=== PATIENT | male | born 1965 | race Caucasian/White ===

== ENCOUNTER 2020-06-25 00:15 | Observation (INO) | payer MEDICARE ==
--- NOTE | 2020-06-25 00:32 | ERPHSYRPT ---
- History of Present Illness Time Seen by Provider: 06/25/20 00:30 Historian: patient Exam Limitations: no limitations Physician History: Pt states he had umbilical hernia surgery on 06/07/20 in [place], [place] by Dr. Perez and 6 days later it was drained producing red/yellow fluid. Pt states 3 days ago the periumbilical area became red and 2 days ago he started with sharp constant 8/10 periumbilical pain. Pt denies fever, chills, nausea, vomiting, diarrhea, chest pain, shortness of air. Last BM was yesterday & wnl. Allergies/Adverse Reactions: codeine Allergy (Verified 06/25/20 00:41) Penicillins Allergy (Verified 06/25/20 00:41) Home Medications: Diazepam 5 mg [Valium 5 MG] 5 mg PO DAILY PRN 06/25/20 [History] Quetiapine Fumarate 100 mg [Seroquel 100 MG] 200 mg PO HS 06/25/20 [Hi story] Venlafaxine HCl ER 75 mg [Effexor XR 75 MG] 75 mg PO DAILY 06/25/20 [History] Travel Risk - International Travel Have you traveled outside of the country in past 3 weeks: No - Coronavirus Screening Are you exhibiting any of the following symptoms?: No Close contact with a COVID-19 positive Pt in past 14-21 Days: No - Review of Systems Constitutional: No Fever, No Chills Respiratory: No Dyspnea Cardiac: No Chest Pain Abdominal/Gastrointestinal: Abdominal Pain, No Nausea, No Vomiting, No Diarrhea Neurological: No Headache All Other Systems: Reviewed and Negative - Nursing Vital Signs Nursing Vital Signs: Initial Vital Signs Pulse Rate 86 06/25/20 00:28 Respiratory Rate 18 06/25/20 00:28 Blood Pressure 136/99 06/25/20 00:28 O2 Sat by Pulse Oximetry 97 06/25/20 00:28 Pain Scale Pain Intensity 2 - Physical Exam General Appearance: alert Eye Exam: PERRL/EOMI Ears, Nose, Throat Exam: pharynx normal, moist mucous membranes Neck Exam: normal inspection Respiratory Exam: lungs clear Cardiovascular Exam: normal heart sounds Gastrointestinal/Abdomen Exam: tenderness (moderate periumbilical tenderness with mild periumbilical erythema and edema.), other (B.S. mildly hyperactive with mildly increased pitch.) Back Exam: normal inspection Extremity Exam: No pedal edema Neurologic Exam: alert, cooperative Skin Exam: No cyanosis - Course Nursing assessment & vital signs reviewed: Yes - CT Exams Abdomen/Pelvis CT Interpretation: Tele-radiologist Report (5.4 x 5.4 x 4.5 cm minimally complex fluid collection in the anterior abdominal wall extending into the subcutaneous fat and to the skin surface accounting for the clinical symptoms described. See rest of report.) Ordered Tests: Active Orders 24 hr Category Date Time Status IV Insertion STAT Care 06/25/20 00:47 Active ABDOMEN AND PELVIS W/0 CONTRAS [CT] Stat Exams 06/25/20 00:47 Taken AMYLASE Stat Lab 06/25/20 01:20 Completed BLOOD CULTURE Stat Lab 06/25/20 01:25 Received CBC W DIFF Stat Lab 06/25/20 01:20 Completed CMP Stat Lab 06/25/20 01:20 Completed LIPASE Stat Lab 06/25/20 01:20 Completed Lactic Acid Stat Lab 06/25/20 01:20 Completed UA W/RFX UR CULTURE Stat Lab 06/25/20 01:20 Completed Medication Summary Generic Name Dose Route Start Last Admin Trade Name Freq PRN Reason Stop Dose Admin Clindamycin HCl/Dextrose 900 mg in 50 mls @ 100 mls/hr 06/25/20 02:20 Clindamycin-D5w 900 Mg/50 Ml IV 06/25/20 02:49 STAT STA Discontinued Medications Generic Name Dose Route Start Last Admin Trade Name Freq PRN Reason Stop Dose Admin Fentanyl Citrate 50 mcg 06/25/20 00:47 Sublimaze 100 Mcg/2 Ml IV 06/25/20 00:48 STAT ONE Fentanyl Citrate 100 mcg 06/25/20 01:10 06/25/20 01:18 Sublimaze 100 Mcg/2 Ml IM 06/25/20 01:11 100 mcg STAT ONE Administration Fentanyl Citrate Confirm 06/25/20 01:13 Sublimaze 100 Mcg/2 Ml Administered 06/25/20 01:14 Dose 100 mcg .ROUTE .STK-MED ONE Sodium Chloride 1,000 mls @ 999 mls/hr 06/25/20 00:47 Sodium Chloride 0.9% 1000 Ml IV 06/25/20 01:47 .Q1H1M STA Ondansetron HCl 4 mg 06/25/20 00:47 Zofran 4 Mg/2 Ml Vial IV 06/25/20 00:48 STAT ONE Promethazine HCl 25 mg 06/25/20 01:10 06/25/20 01:19 Phenergan 25 Mg Inj IM 06/25/20 01:11 25 mg STAT ONE Administration Promethazine HCl Confirm 06/25/20 01:13 Phenergan 25 Mg Inj Administered 06/25/20 01:14 Dose 25 mg .ROUTE .STK-MED ONE Lab/Rad Data: Laboratory Result Diagrams 06/25/20 01:20 06/25/20 01:20 Laboratory Results 06/25/20 06/25/20 06/25/20 Range/Units 01:20 01:20 01:20 WBC 9.1 (4.0-10.5) K/mm3 RBC 4.99 (4.1-5.6) M/mm3 Hgb 15.0 (12.5-18.0) gm/dl Hct 44.6 (42-50) % MCV 89.4 (78-100) fl MCH 30.1 (26-32) pg MCHC 33.6 (32-36) g/dl RDW 13.6 (11.5-14.0) % Plt Count 510 H (150-450) K/mm3 MPV 9.9 (7.5-11.0) fl Gran % 56.9 (36.0-66.0) % Eos # (Auto) 0.01 (0-0.5) Absolute Lymphs (auto) 2.50 (1.0-4.6) Absolute Monos (auto) 1.36 H (0.0-1.3) Lymphocytes % 27.6 (24.0-44.0) % Monocytes % 15.0 H (0.0-12.0) % Eosinophils % 0.1 (0.00-5.0) % Basophils % 0.4 (0.0-0.4) % Absolute Granulocytes 5.14 (1.4-6.9) Basophils # 0.04 (0-0.4) Sodium 135 L (137-145) mmol/L Potassium 4.0 (3.5-5.1) mmol/L Chloride 101 (98-107) mmol/L Carbon Dioxide 26 (22-30) mmol/L Anion Gap 12.3 (5-15) MEQ/L BUN 10 (9-20) mg/dL Creatinine 1.17 (0.66-1.25) mg/dL Estimated GFR > 60.0 ML/MIN Glucose 107 H (74-106) mg/dL Lactic Acid 1.6 (0.4-2.0) Calcium 9.5 (8.4-10.2) mg/dL Total Bilirubin 0.40 (0.2-1.3) mg/dL AST 24 (17-59) U/L ALT 31 (0-50) U/L Alkaline Phosphatase 84 (38-126) U/L Serum Total Protein 7.3 (6.3-8.2) g/dL Albumin 4.3 (3.5-5.0) g/dL Amylase 128 H (30-110) U/L Lipase 314 H (23-300) U/L Urine Color (YELLOW) Urine Appearance (CLEAR) Urine pH (5-6) Ur Specific [place] (1.005-1.025) Urine Protein (Negative) Urine Ketones (NEGATIVE) Urine Blood (0-5) Graham/ul Urine Nitrite (NEGATIVE) Urine Bilirubin (NEGATIVE) Urine Urobilinogen (0-1) mg/dL Ur Leukocyte Esterase (NEGATIVE) Urine WBC (Auto) (0-5) /HPF Urine RBC (Auto) (0-2) /HPF U Hyaline Cast (Auto) (0-2) /LPF U Epithel Cells (Auto) (FEW) /HPF Urine Bacteria (Auto) (NEGATIVE) /HPF Urine Mucus (Auto) (NEGATIVE) /HPF Urine Culture Reflexed (NO) Urine Glucose (NEGATIVE) mg/dL 06/25/20 Range/Units 01:20 WBC (4.0-10.5) K/mm3 RBC (4.1-5.6) M/mm3 Hgb (12.5-18.0) gm/dl Hct (42-50) % MCV (78-100) fl MCH (26-32) pg MCHC (32-36) g/dl RDW (11.5-14.0) % Plt Count (150-450) K/mm3 MPV (7.5-11.0) fl Gran % (36.0-66.0) % Eos # (Auto) (0-0.5) Absolute Lymphs (auto) (1.0-4.6) Absolute Monos (auto) (0.0-1.3) Lymphocytes % (24.0-44.0) % Monocytes % (0.0-12.0) % Eosinophils % (0.00-5.0) % Basophils % (0.0-0.4) % Absolute Granulocytes (1.4-6.9) Basophils # (0-0.4) Sodium (137-145) mmol/L Potassium (3.5-5.1) mmol/L Chloride (98-107) mmol/L Carbon Dioxide (22-30) mmol/L Anion Gap (5-15) MEQ/L BUN (9-20) mg/dL Creatinine (0.66-1.25) mg/dL Estimated GFR ML/MIN Glucose (74-106) mg/dL Lactic Acid (0.4-2.0) Calcium (8.4-10.2) mg/dL Total Bilirubin (0.2-1.3) mg/dL AST (17-59) U/L ALT (0-50) U/L Alkaline Phosphatase (38-126) U/L Serum Total Protein (6.3-8.2) g/dL Albumin (3.5-5.0) g/dL Amylase (30-110) U/L Lipase (23-300) U/L Urine Color YELLOW (YELLOW) Urine Appearance CLEAR (CLEAR) Urine pH 6.0 (5-6) Ur Specific [place] 1.017 (1.005-1.025) Urine Protein NEGATIVE (Negative) Urine Ketones NEGATIVE (NEGATIVE) Urine Blood NEGATIVE (0-5) Graham/ul Urine Nitrite NEGATIVE (NEGATIVE) Urine Bilirubin NEGATIVE (NEGATIVE) Urine Urobilinogen 2 (0-1) mg/dL Ur Leukocyte Esterase NEGATIVE (NEGATIVE) Urine WBC (Auto) NONE (0-5) /HPF Urine RBC (Auto) NONE (0-2) /HPF U Hyaline Cast (Auto) 3-5 (0-2) /LPF U Epithel Cells (Auto) NONE (FEW) /HPF Urine Bacteria (Auto) NONE (NEGATIVE) /HPF Urine Mucus (Auto) SLIGHT (NEGATIVE) /HPF Urine Culture Reflexed NO (NO) Urine Glucose NEGATIVE (NEGATIVE) mg/dL - Progress Progress: unchanged Discussed with : Ren (Spoke with Dr. Perea([id number]) - obs.) Will see patient in: hospital (observation) Counseled pt/family regarding: lab results, rad results - Departure Departure Disposition: Observation Clinical Impression: Abdominal wall cellulitis, S/P umbilical herina repair day 18 Condition: Stable Critical Care Time: No Referrals: DOCTOR,NO FAMILY [Primary Care Provider] -
[2020-06-25] MEDS ORDERED: Zofran 4 MG/2 ML VIAL IV ONE (00:47)
[2020-06-25] MEDS ORDERED: Sodium Chloride 0.9% 1000 ML 1,000 ML IV STA (00:47)
[2020-06-25] MEDS ORDERED: SUBLIMAZE 100 MCG/2 ML IV ONE (00:47)
[2020-06-25] MEDS ORDERED: SUBLIMAZE 100 MCG/2 ML IM ONE ×2 (01:10→08:39)
[2020-06-25] MEDS ORDERED: Phenergan 25 MG INJ IM ONE (01:10)
[2020-06-25] MEDS ORDERED: SUBLIMAZE 100 MCG/2 ML ONE (01:13)
[2020-06-25] MEDS ORDERED: Phenergan 25 MG INJ ONE (01:13)
[2020-06-25 01:48] LABS: ALBUMIN 4.3 g/dL (3.5-5.0); ALKALINE PHOSPHATASE 84 U/L (38-126); AMYLASE 128 U/L (30-110); ANION GAP 12.3 MEQ/L (5-15); BLOOD UREA NITROGEN 10 mg/dL (9-20); CHLORIDE 101 mmol/L (98-107); Calcium 9.5 mg/dL (8.4-10.2); Carbon Dioxide 26 mmol/L (22-30); Creatinine 1 1.17 mg/dL (0.66-1.25); EST GLOMERULAR FILTRATION RATE > 60.0 ML/MIN; Glucose 107 mg/dL (74-106); LIPASE 314 U/L (23-300); SGOT/AST 24 U/L (17-59); SGPT/ALT 31 U/L (0-50); SODIUM 135 mmol/L (137-145); Total Protein 7.3 g/dL (6.3-8.2)
[2020-06-25 01:52] LABS: Appearance CLEAR (CLEAR); Bilirubin NEGATIVE (NEGATIVE); Blood NEGATIVE Ery/ul (0-5); Glucose NEGATIVE (NEGATIVE); Ketones NEGATIVE (NEGATIVE); Leukocyte Esterase NEGATIVE (NEGATIVE); Mucus SLIGHT /HPF (NEGATIVE); Nitrite NEGATIVE (NEGATIVE); Protein,Urine Dip NEGATIVE (Negative); Specific Gravity 1.017 (1.005-1.025); Urobilinogen 2 mg/dL (0-1)
[2020-06-25 01:58] LABS: Absolute Neutrophil Ct (ANC) 5.14 (1.4-6.9); BASOPHIL % 0.4 % (0.0-0.4); Basophil (Absolute #) 0.04 (0-0.4); Eosinophil % 0.1 % (0.00-5.0); Eosinophil (Absolute #) 0.01 (0-0.5); Hematocrit 44.6 % (42-50); Lymphocytes % 27.6 % (24.0-44.0); Mean Cell Volume 89.4 fl (78-100); Mean Corpuscular Hemoglobin 30.1 pg (26-32); Mean Corpuscular Hgb Concent. 33.6 g/dl (32-36); Mean Platelet Volume 9.9 fl (7.5-11.0); Monocyte (Absolute #) 1.36 (0.0-1.3); Neutrophil % 56.9 % (36.0-66.0); Platelet Count 510 K/mm3 (150-450); Red Blood Count 4.99 M/mm3 (4.1-5.6); Red Cell Distribution Width 13.6 % (11.5-14.0); White Blood Count 9.1 K/mm3 (4.0-10.5)
[2020-06-25] MEDS ORDERED: CLINDAMYCIN-D5W 900 MG/50 ML*** 900 MG/50 ML BAG IV STA (02:20)
[2020-06-25] MEDS ORDERED: Zofran 4 MG/2 ML VIAL IV PRN (02:36)
[2020-06-25] MEDS: Sodium Chloride 0.9% 1000 ML 1,000 ML IV SCH ×3 (03:04→21:53)
[2020-06-25] MEDS ORDERED: VENTOLIN COMMON CANISTER IH PRN (04:40)
[2020-06-25] MEDS ORDERED: ZOFRAN ODT 4 MG PO ONE (04:45)
[2020-06-25] MEDS ORDERED: OXYCODONE-ACETAMINOPHEN 10-325 PO ONE (04:45)
[2020-06-25 05:45] LABS: Absolute Neutrophil Ct (ANC) 4.55 (1.4-6.9); BASOPHIL % 0.5 % (0.0-0.4); Basophil (Absolute #) 0.04 (0-0.4); Eosinophil % 0.1 % (0.00-5.0); Eosinophil (Absolute #) 0.01 (0-0.5); Hemoglobin 14.6 gm/dl (12.5-18.0); Lymphocyte (Absolute #) 2.28 (1.0-4.6); Lymphocytes % 28.3 % (24.0-44.0); Mean Cell Volume 90.5 fl (78-100); Mean Corpuscular Hgb Concent. 33.2 g/dl (32-36); Mean Platelet Volume 10.2 fl (7.5-11.0); Monocyte (Absolute #) 1.19 (0.0-1.3); Monocytes % 14.7 % (0.0-12.0); Neutrophil % 56.4 % (36.0-66.0); Platelet Count 470 K/mm3 (150-450); Red Blood Count 4.86 M/mm3 (4.1-5.6); Red Cell Distribution Width 13.7 % (11.5-14.0); White Blood Count 8.1 K/mm3 (4.0-10.5)
[2020-06-25] MEDS ORDERED: CLINDAMYCIN-D5W 900 MG/50 ML*** 900 MG/50 ML BAG IV SCH (06:00)
[2020-06-25 06:07] LABS: ALBUMIN 4.1 g/dL (3.5-5.0); ALKALINE PHOSPHATASE 88 U/L (38-126); AMYLASE 117 U/L (30-110); ANION GAP 10.6 MEQ/L (5-15); BLOOD UREA NITROGEN 13 mg/dL (9-20); CHLORIDE 100 mmol/L (98-107); Calcium 9.6 mg/dL (8.4-10.2); Carbon Dioxide 28 mmol/L (22-30); Creatinine 1 1.16 mg/dL (0.66-1.25); EST GLOMERULAR FILTRATION RATE > 60.0 ML/MIN; Glucose 110 mg/dL (74-106); LIPASE 301 U/L (23-300); Potassium 3.8 mmol/L (3.5-5.1); SGOT/AST 30 U/L (17-59); SGPT/ALT 31 U/L (0-50); SODIUM 135 mmol/L (137-145); Total Protein 7.1 g/dL (6.3-8.2)
[2020-06-25] MEDS ORDERED: DUONEB 0.5-3 MG/3 ml Neb IH ONE (06:50)
[2020-06-25] MEDS: PROVENTIL 2.5 MG/3 ML NEB IH SCH ×4 (06:53→18:55)
[2020-06-25] MEDS: Advair Hfa 230/21 Mcg COMMON CANISTER IH SCH ×2 (06:54→18:59)
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
--- NOTE | 2020-06-25 09:40 | XRAY ---
Indication: Status post umbilical hernia repair June 07, 2020. Pain and swelling around umbilicus. Multiple contiguous axial images obtained through the abdomen and pelvis without contrast as ordered. Comparison: None Lung bases demonstrates minimal dependent atelectasis. No infiltrate or effusion. Heart is not enlarged. Umbilicus demonstrates fluid collection that is subcutaneous and in the abdominal musculature overall measuring 5.4 x 5.4 x 4.5 cm possibly postoperative hematoma/seroma. Infected fluid collection not completely excluded on this noncontrast exam. Underlying ventral mesh graft appears irregular/serpiginous questioning its integrity. Stomach is distended with food. Noncontrasted stomach and bowel loops appear nonobstructed. Normal appendix. Intact sigmoid anastomosis. Previous cholecystectomy. No free fluid/air. Remaining liver, pancreas, spleen, adrenal glands, kidneys, ureters, and bladder appear unremarkable for noncontrast exam. Minimal aortic calcifications without AAA. Osseous structures intact with minimal degenerative changes throughout the spine. Impression: 1. Anterior abdominal wall fluid collection centered around the umbilicus possibly postoperative hematoma/seroma. Infected fluid collection not completely excluded in the right clinical setting. 2. Integrity of the umbilical ventral hernia mesh graft is in question. Comment: Preliminary interpretation was made by [facility]. No critical discrepancy.
[2020-06-25] MEDS: CLINDAMYCIN-D5W 900 MG/50 ML*** 900 MG/50 ML BAG IV SCH ×2 (11:09→21:53)
[2020-06-25] MEDS: MORPHINE SULFATE 4 MG INJ IV PRN ×3 (13:48→23:26)
[2020-06-26] MEDS: Advair Hfa 230/21 Mcg COMMON CANISTER IH SCH (06:45)
[2020-06-26] MEDS: PROVENTIL 2.5 MG/3 ML NEB IH SCH ×2 (06:45→10:40)
[2020-06-26] MEDS: CLINDAMYCIN-D5W 900 MG/50 ML*** 900 MG/50 ML BAG IV SCH (06:51)
[2020-06-26] MEDS: MORPHINE SULFATE 4 MG INJ IV PRN (07:54)
[2020-06-26] MEDS: Sodium Chloride 0.9% 1000 ML 1,000 ML IV SCH (08:27)
[2020-06-26 11:21] VITALS: BP 136/65; PULSE 96; O2SAT 98
--- NOTE | 2020-06-28 11:30 | CONS ---
REASON FOR CONSULT: Cellulitis. HISTORY: The patient had umbilical hernia performed down in [facility] a few months ago. He apparently had an infection and had it reopened. He is doing reasonable. He has some cellulitis. There is an infra-umbilical incision. There is a very small seroma. There is nothing that needs drained. He needs IV antibiotic followed by p.o. antibiotic. He may very well have mesh in this and this might be a adjunct faculty for medical terminology problem but at this time he just needs IV antibiotics.
--- NOTE | 2020-06-29 15:23 | SSS ---
DISCHARGE DIAGNOSIS: ABDOMINAL WALL CELLULITIS. HOSPITAL COURSE: The patient is a 55 year old white male patient who is visiting here from [place]. Apparently he has family here but lives in [place]. He recently had evaluation by his surgeon down there. He apparently had primary history of colon cancer. He had bowel wall prolapse and apparently had cellulitis to the abdominal wall. He had umbilical hernia repair apparently six days ago which apparently developed a fluid collection. There appears to be displaced mesh but unlikely be abscess. Surgery was consulted and the patient started on IV Clindamycin. He was much better essentially showing no evidence of cellulitis at this time. The patient was felt to be ready for discharge home again on Clindamycin 600 mg every eight hours for ten days and follow up with a surgeon. The patient reports that he will be going back to [place] to be seen by his surgeon on Sunday or Sunday but will be coming back again as he has family in the area and is dealing recent demise of a family member. PHYSICAL EXAMINATION: Currently revealed a well-nourished, well-developed 55 year old white male in no distress. He is currently afebrile. His most recent blood pressure was 113/67, respirations 20, heart rate 72. O2 saturations 93%. HEENT: Normocephalic, atraumatic. Pupils equal round reactive to light. Extraocular movements intact. Oropharynx is pink and moist. NECK: Supple without lymphadenopathy, thyromegaly or JVD. CHEST: Clear to auscultation. HEART: Regular rate and rhythm. ABDOMEN: Revealed the periumbilical incision which currently appears to be free of any evidence of cellulitis. EXTREMITIES: Without cyanosis, clubbing or edema. NEUROLOGIC: The patient is alert and oriented x3. No focal deficits noted. LAB DATA AND TESTS: Glucose 110, BUN 13, creatinine 1.16. Electrolytes were normal. He had slight elevation of amylase at 117 and lipase of 301 which were both slightly above normal. White count of 8.1, hemoglobin 14.6, PLT count 470,000. UA was essentially normal. Lactic acid initially 1.6. CT scan showed anterior abdominal wall fluid collections around the umbilicus possible perioperative hematoma or seroma. Integrity of the umbilical ventral hernia mesh graft was in question. DISPOSITION: Again, the patient will be discharged home currently with Clindamycin 600 mg every eight hours with instructions to follow up with Dr. Perea in the office next week and to see his surgeon in [place] as planned.
== END 2020-06-26 11:05 | disposition home or self-care (01) ==
LOC: ED 00:15 → MED SURG 03:27
PROVIDERS: ADMIT Family Medicine; ATTEND Family Medicine
DX: L03.311 Cellulitis of abdominal wall (principal); I10 Essential (primary) hypertension; G40.909 Epilepsy, unspecified, not intractable, without status epilepticus; E78.00 Pure hypercholesterolemia, unspecified; Z98.890 Other specified postprocedural states; Z79.899 Other long term (current) drug therapy; Z85.038 Personal history of other malignant neoplasm of large intestine
CPT/HCPCS: 36000; 36415; 74176; 80053; 81001; 82150; 83605; 83690; 85025; 87040; 93268; 94150; 94640; 94760; 96372; 99285; G0378; J2270; J2550; J3010; J7609; Q0162; A9270-GY

== ENCOUNTER 2020-07-10 15:58 | Emergency (ER) | payer MEDICARE ==
--- NOTE | 2020-07-10 16:20 | ERPHSYRPT ---
- History of Present Illness Time Seen by Provider: 07/10/20 16:10 Historian: patient Exam Limitations: no limitations Patient Subjective Stated Complaint: pt had hernia repair 06/07, seen dr pennington for pain and had US done that showed fluid in abd. he states pain is worse, nausea, no fever, Bm yesterday that is normal Triage Nursing Assessment: pt alert, walked in moaning, resp easy, face mask in place, abd soft, moves all ext well Physician History: This is an obese 55-year-old white male originally from [place] who had an umbilical hernia repair with mesh on 06/07/2020. Patient has since moved to [facility]. Since he has been here he has had intermittent pain and redness and swelling around his postoperative site. He had a subsequent seroma drainage and treatment for localized cellulitis prior to him moving here. He has been evaluated both as an inpatient and outpatient for postoperative pain, cellulitis and subcutaneous fluid collection. On 07/09/2020 patient underwent an ultrasound of the region. The report states that the fluid collection is more likely a seroma/hematoma than an infectious fluid collection. Patient has completed both inpatient and outpatient clindamycin antibiotics. He has no pain medicine. Patient denies fever. Timing/Duration: week(s) (4) Activities at Onset: none Quality: burning, sharpness Abdominal Pain Onset Location: periumbilical (Post operative site) Pain Radiation: no radiation Severity of Pain-Max: moderate Severity of Pain-Current: moderate Modifying Factors: Improves With: analgesics (Helps) Associated Symptoms: denies symptoms Previous symptoms: same symptoms as today, recently seen, recent ho spitalization, recently treated Allergies/Adverse Reactions: codeine Allergy (Verified 07/10/20 16:00) Penicillins Allergy (Verified 07/10/20 16:00) Home Medications: Diazepam 5 mg [Valium 5 MG] 5 mg PO DAILY PRN 06/25/20 [History] Quetiapine Fumarate 100 mg [Seroquel 100 MG] 200 mg PO HS 06/25/20 [History] Venlafaxine HCl ER 75 mg [Effexor XR 75 MG] 75 mg PO DAILY 06/25/20 [History] Albuterol Sulfate [Proair Hfa] 2 puff IH Q4H PRN 06/26/20 [History] Budesonide/Formoterol Fumarate [Symbicort 160-4.5 Mcg Inhaler] 2 puff IH DAILY 06/26/20 [History] Ketorolac Tromethamine [Toradol] 1 tab PO Q6H PRN 06/26/20 [History] PANTOPRAZOLE 40 mg Tablet [Protonix 40MG Tablet] 1 tab PO BID 06/26/20 [History] Tramadol HCl 50 mg [Ultram 50 mg] 1 tab PO Q8H PRN 06/26/20 [History] Hx Tetanus, Diphtheria Vaccination/Date Given: Yes Hx Influenza Vaccination/Date Given: Yes Hx Pneumococcal Vaccination/Date Given: Yes (2018) Immunizations Up to Date: Yes Travel Risk - International Travel Have you traveled outside of the country in past 3 weeks: No - Coronavirus Screening Are you exhibiting any of the following symptoms?: No Close contact with a COVID-19 positive Pt in past 14-21 Days: No - Review of Systems Constitutional: No Symptoms Eyes: No Symptoms Ears, Nose, & Throat: No Symptoms Respiratory: No Symptoms Cardiac: No Symptoms Abdominal/Gastrointestinal: Abdominal Pain (At the postoperative periumbilical site.) Genitourinary Symptoms: No Symptoms Musculoskeletal: No Symptoms Skin: Cellulitis (Localized at the postoperative periumbilical site) Neurological: No Symptoms Psychological: No Symptoms Endocrine: No Symptoms Hematologic/Lymphatic: No Symptoms Immunological/Allergic: No Symptoms All Other Systems: Reviewed and Negative - Past Medical History Pertinent Past Medical History: Yes Neurological History: No Pertinent History ENT History: No Pertinent History Cardiac History: High Cholesterol, Hypertension, Other Respiratory History: Asthma, Bronchitis Endocrine Medical History: No Pertinent History Musculoskeletal History: Arthritis GI Medical History: Other History: No Pertinent History Psycho-Social History: Anxiety, Depression Male Reproductive Disorders: Prostate Problems Other Medical History: colon cancer, mitral valve prolapse - Past Surgical History Past Surgical History: Yes Neuro Surgical History: No Pertinent History Cardiac: No Pertinent History Respiratory: No Pertinent History Gastrointestinal: Colon Resection, Hernia Repair Genitourinary: No Pertinent History Musculoskeletal: Other Male Surgical History: No Pertinent History Other Surgical History: colon, back, bilateral hands, bilateral shoulders, eye - Social History Smoking Status: Never smoker Exposure to second hand smoke: No Drug Use: none Patient Lives Alone: No - Nursing Vital Signs Nursing Vital Signs: Initial Vital Signs Temperature 97.1 F 07/10/20 16:02 Pulse Rate 65 07/10/20 16:02 Respiratory Rate 16 07/10/20 16:02 Blood Pressure 161/118 07/10/20 16:02 O2 Sat by Pulse Oximetry 99 07/10/20 16:02 Pain Scale Pain Intensity 8 - Physical Exam General Appearance: no apparent distress, alert, anxiety, obese Eye Exam: PERRL/EOMI, eyes nml inspection Ears, Nose, Throat Exam: normal ENT inspection, moist mucous membranes Neck Exam: normal inspection, non-tender, supple, full range of motion Respiratory Exam: normal breath sounds, lungs clear, airway intact, No chest tenderness, No respiratory distress Cardiovascular Exam: regular rate/rhythm, normal heart sounds, normal peripheral pulses Gastrointestinal/Abdomen Exam: soft, tenderness (At the postoperative umbilical site.), other (There is a palpable healing ridge at the postoperative site.) Rectal Exam: not done Back Exam: normal inspection, normal range of motion, No CVA tenderness, No vertebral tenderness Extremity Exam: normal inspection, normal range of motion, pelvis stable Neurologic Exam: alert, oriented x 3, cooperative, director game II-XII nml as tested, normal mood/affect, nml cerebellar function, nml station & gait, sensation nml Skin Exam: normal color, warm, dry Lymphatic Exam: No adenopathy SpO2 Interpretation: normal SpO2: 99 O2 Delivery: Room Air - Course Nursing assessment & vital signs reviewed: Yes Ordered Tests: Active Orders 24 hr Category Date Time Status IV Insertion STAT Care 07/10/20 16:21 Active ABDOMEN AND PELVIS W/0 CONTRAS [CT] Stat Exams 07/10/20 16:21 Taken AMYLASE Stat Lab 07/10/20 16:41 Completed CBC W DIFF Stat Lab 07/10/20 16:41 Completed CMP Stat Lab 07/10/20 16:41 Completed LIPASE Stat Lab 07/10/20 16:41 Completed Lactic Acid Stat Lab 07/10/20 16:41 Completed Medication Summary Generic Name Dose Route Start Last Admin Trade Name Freq PRN Reason Stop Dose Admin Levofloxacin/Dextrose 500 mg in 100 mls @ 100 mls/hr 07/10/20 17:27 07/10/20 17:30 Levofloxacin 500mg/100ml D5w IV 07/10/20 18:26 100 ml/hr STAT STA 100 mls/hr Administration Discontinued Medications Generic Name Dose Route Start Last Admin Trade Name Jakub PRN Reason Stop Dose Admin Levofloxacin/Dextrose Confirm 07/10/20 17:28 Levofloxacin 500mg/100ml D5w Administered 07/10/20 17:29 Dose 500 mg in 100 mls @ ud IV .STK-MED ONE Morphine Sulfate Confirm 07/10/20 17:26 Morphine Sulfate 4 Mg Inj Administered 07/10/20 17:27 Dose 4 mg .ROUTE .STK-MED ONE Morphine Sulfate 4 mg 07/10/20 17:30 07/10/20 17:31 Morphine Sulfate 4 Mg Inj IV 07/10/20 17:31 4 mg STAT ONE Administration Ondansetron HCl Confirm 07/10/20 17:26 Zofran 4 Mg/2 Ml Vial Administered 07/10/20 17:27 Dose 4 mg .ROUTE .STK-MED ONE Ondansetron HCl 4 mg 07/10/20 17:30 07/10/20 17:31 Zofran 4 Mg/2 Ml Vial IV 07/10/20 17:31 4 mg STAT ONE Administration Lab/Rad Data: Laboratory Result Diagrams 07/10/20 16:41 07/10/20 16:41 Laboratory Results 07/10/20 07/10/20 07/10/20 Range/Units 16:41 16:41 16:41 WBC 7.7 (4.0-10.5) K/mm3 RBC 5.29 (4.1-5.6) M/mm3 Hgb 15.9 (12.5-18.0) gm/dl Hct 47.7 (42-50) % MCV 90.2 (78-100) fl MCH 30.1 (26-32) pg MCHC 33.3 (32-36) g/dl RDW 13.9 (11.5-14.0) % Plt Count 346 (150-450) K/mm3 MPV 10.0 (7.5-11.0) fl Gran % 59.3 (36.0-66.0) % Eos # (Auto) 0.01 (0-0.5) Absolute Lymphs (auto) 2.29 (1.0-4.6) Absolute Monos (auto) 0.82 (0.0-1.3) Lymphocytes % 29.6 (24.0-44.0) % Monocytes % 10.6 (0.0-12.0) % Eosinophils % 0.1 (0.00-5.0) % Basophils % 0.4 (0.0-0.4) % Absolute Granulocytes 4.58 (1.4-6.9) Basophils # 0.03 (0-0.4) Sodium 137 (137-145) mmol/L Potassium 4.2 (3.5-5.1) mmol/L Chloride 103 (98-107) mmol/L Carbon Dioxide 26 (22-30) mmol/L Anion Gap 11.7 (5-15) MEQ/L BUN 12 (9-20) mg/dL Creatinine 1.04 (0.66-1.25) mg/dL Estimated GFR > 60.0 ML/MIN Glucose 112 H (74-106) mg/dL Lactic Acid 1.6 (0.4-2.0) Calcium 9.6 (8.4-10.2) mg/dL Total Bilirubin 0.50 (0.2-1.3) mg/dL AST 45 (17-59) U/L ALT 50 (0-50) U/L Alkaline Phosphatase 112 (38-126) U/L Serum Total Protein 7.6 (6.3-8.2) g/dL Albumin 4.3 (3.5-5.0) g/dL Amylase 111 H (30-110) U/L Lipase 150 (23-300) U/L - Progress Progress: improved, pain not gone completely, re-examined Progress Note: 07/10/20 17:31 CAT scan of the abdomen and pelvis read demonstrates the 5.2 cm prominent region of subcutaneous fat stranding surrounding the umbilicus extending to the level of the hernia. There is an approximately 5.2 cm low-density fluid collection at the level of the hernia graft. The overall size of the fluid collection has decreased since the prior postoperative CT scan, the overall appearance is most concerning for infectious/inflammatory process such as a phlegmon/abscess. They recommend surgical consultation. Medical decision making: This patient has a postoperative fluid collection that is now more concerning for infectious/inflammatory process. The patient's lactic acid level, white blood cell count and temperature are all normal. This patient needs a surgical consultation. This can be done as an outpatient. Patient will be given intravenous antibiotics in the emergency department followed by outpatient antibiotics and instructions to call the local general surgeon office (Dr. Brett Cruz) on Sunday, July 12, 2020 for evaluation and further management. 07/10/20 17:41 Patient did state that he can take morphine intravenously and hydrocodone orally without any problems. Counseled pt/family regarding: lab results, diagnosis, need for follow-up, rad results - Departure Departure Disposition: Home Clinical Impression: Postoperative infection, seroma Condition: Stable Critical Care Time: No Referrals: LALY PENNINGTON [Primary Care Provider] - Additional Instructions: Drink plenty of fluids. Take your antibiotics and pain medication as prescribed. Call the local general surgeon, Dr. Brett Cruz, as instructed on Sunday07/12/2020 for further instructions and management Prescriptions: Hydrocodone/APAP 5-325 Tab^^^ [[place] 5-325 Tablet^^^] 1 tab PO Q8H PRN PRN #8 tablet MDD 6 PRN Reason: Pain Smz/Tmp Ds Tablet [Bactrim Ds Tablet] 1 udtab PO BID #14 tablet
[2020-07-10 16:55] LABS: Absolute Neutrophil Ct (ANC) 4.58 (1.4-6.9); BASOPHIL % 0.4 % (0.0-0.4); Basophil (Absolute #) 0.03 (0-0.4); Eosinophil % 0.1 % (0.00-5.0); Eosinophil (Absolute #) 0.01 (0-0.5); Hematocrit 47.7 % (42-50); Hemoglobin 15.9 gm/dl (12.5-18.0); Lymphocyte (Absolute #) 2.29 (1.0-4.6); Lymphocytes % 29.6 % (24.0-44.0); Mean Cell Volume 90.2 fl (78-100); Mean Corpuscular Hemoglobin 30.1 pg (26-32); Mean Corpuscular Hgb Concent. 33.3 g/dl (32-36); Monocyte (Absolute #) 0.82 (0.0-1.3); Monocytes % 10.6 % (0.0-12.0); Neutrophil % 59.3 % (36.0-66.0); Platelet Count 346 K/mm3 (150-450); Red Blood Count 5.29 M/mm3 (4.1-5.6); Red Cell Distribution Width 13.9 % (11.5-14.0); White Blood Count 7.7 K/mm3 (4.0-10.5)
[2020-07-10 16:57] LABS: ALBUMIN 4.3 g/dL (3.5-5.0); ALKALINE PHOSPHATASE 112 U/L (38-126); AMYLASE 111 U/L (30-110); ANION GAP 11.7 MEQ/L (5-15); BLOOD UREA NITROGEN 12 mg/dL (9-20); CHLORIDE 103 mmol/L (98-107); Calcium 9.6 mg/dL (8.4-10.2); Carbon Dioxide 26 mmol/L (22-30); Creatinine 1 1.04 mg/dL (0.66-1.25); EST GLOMERULAR FILTRATION RATE > 60.0 ML/MIN; Glucose 112 mg/dL (74-106); LIPASE 150 U/L (23-300); Potassium 4.2 mmol/L (3.5-5.1); SGOT/AST 45 U/L (17-59); SGPT/ALT 50 U/L (0-50); SODIUM 137 mmol/L (137-145); Total Protein 7.6 g/dL (6.3-8.2)
[2020-07-10] MEDS ORDERED: MORPHINE SULFATE 4 MG INJ ONE (17:26)
[2020-07-10] MEDS ORDERED: Zofran 4 MG/2 ML VIAL ONE (17:26)
[2020-07-10] MEDS ORDERED: Levofloxacin 500MG/100ML D5W 500 MG/100 ML BAG IV STA (17:27)
[2020-07-10] MEDS ORDERED: Levofloxacin 500MG/100ML D5W 500 MG/100 ML BAG IV ONE (17:28)
[2020-07-10] MEDS ORDERED: Zofran 4 MG/2 ML VIAL IV ONE (17:30)
[2020-07-10] MEDS ORDERED: MORPHINE SULFATE 4 MG INJ IV ONE (17:30)
[2020-07-10] MEDS ORDERED: NORCO 5/325 MG PO ONE (17:44)
[2020-07-10 18:08] VITALS: BP 117/86
[2020-07-10] MEDS ORDERED: NORCO 5/325 MG ONE ×2 (18:35)
[2020-07-10 18:45] VITALS: PULSE 64; O2SAT 95
--- NOTE | 2020-07-10 21:42 | XRAY ---
Indication: Abdomen pain following hernia surgery June 07 2020. Multiple contiguous axial images obtained through the abdomen and pelvis without contrast as ordered. Comparison: June 25, 2020. Lung bases are clear. Heart is not enlarged. Umbilicus again demonstrates subcutaneous fluid collection measuring 3.4 X 3.7 x 3.5 cm, previously 5.5 x 5.5 x 4.5 cm. Lack of IV contrast precludes further characterization. Findings probably postoperative hematoma/seroma given smaller size. However infected fluid collection not completely excluded. Stable underlying ventral hernia mesh graft. Noncontrasted stomach and bowel loops remain nonobstructed with normal appendix and intact sigmoid diverticulosis. Stable cholecystectomy clips. No free fluid/air. Remaining liver, pancreas, spleen, adrenal glands, kidneys, ureters, and bladder remain unremarkable for noncontrast exam. Again minimal aortic calcifications without AAA. Impression: 1. The umbilicus subcutaneous fluid collection appears smaller probably postoperative hematoma/seroma. Again infected fluid collection not completely excluded in the right clinical setting. 2. Remaining CT abdomen/pelvis without contrast exam is negative. Comment: Preliminary interpretation was made by [facility]. No critical discrepancy.
== END 2020-07-10 18:46 | disposition home or self-care (01) ==
LOC: ED 15:58
DX: K91.872 Postprocedural seroma of a digestive system organ or structure following a digestive system procedure (principal); Z79.899 Other long term (current) drug therapy; I10 Essential (primary) hypertension; Z85.038 Personal history of other malignant neoplasm of large intestine; I34.1 Nonrheumatic mitral (valve) prolapse
CPT/HCPCS: 36000; 36415; 74176; 80053; 82150; 83605; 83690; 85025; 96365; 96374; 96375; 99284; J1956; J2270; J2405; A9270-GY

== ENCOUNTER 2020-07-12 00:29 | Emergency (ER) | payer MEDICARE ==
[2020-07-12] MEDS ORDERED: Zofran 4 MG/2 ML VIAL IV ONE (01:17)
[2020-07-12] MEDS ORDERED: Hydromorphone 1 mg/ml Injection IV ONE (01:17)
[2020-07-12] MEDS ORDERED: Sodium Chloride 0.9% 1000 ML 1,000 ML IV STA (01:17)
--- NOTE | 2020-07-12 01:17 | ERPHSYRPT ---
- History of Present Illness Time Seen by Provider: 07/12/20 01:10 Historian: patient Exam Limitations: no limitations Patient Subjective Stated Complaint: . Triage Nursing Assessment: . Physician History: This is a 55-year-old obese white male who is approximately 1 month out from a umbilical hernia repair with mesh. The surgery was performed in [place]. The patient has since moved to this area. He had a seroma that was drained several days after his procedure performed and prior to moving to the area. Since he has been in [facility], he has had tenderness in the site of surgery and was found to have what appeared to be a noninfected seroma initially. However he was seen in this emergency department less than 2 days ago and a repeat CAT scan revealed possibly infected seroma. Patient's white count, temperature, lactic acid were all normal. He was discharged to home with a prescription for oral antibiotics and hydrocodone. The plan was for him to follow-up today, 07/12/2020 with Brett Cruz who was the general surgeon who evaluated the patient while in the hospital during a recent hospitalization for treatment of postoperative cellulitis. Patient is back again today because he had episode of vomiting and has nausea and the pain medicine is not working for him. Timing/Duration: today Activities at Onset: none Quality: sharpness, stabbing Abdominal Pain Onset Location: periumbilical Pain Radiation: no radiation Severity of Pain-Max: moderate Severity of Pain-Current: moderate Associated Symptoms: nausea, vomiting, No chest pain, No fever/chills Previous symptoms: same symptoms as today Allergies/Adverse Reactions: codeine Allergy (Verified 07/12/20 00:56) Penicillins Allergy (Verified 07/12/20 00:56) Home Medications: Diazepam 5 mg [Valium 5 MG] 5 mg PO DAILY PRN 06/25/20 [History] Quetiapine Fumarate 100 mg [Seroquel 100 MG] 200 mg PO HS 06/25/20 [History] Venlafaxine HCl ER 75 mg [Effexor XR 75 MG] 75 mg PO DAILY 06/25/20 [History] Albuterol Sulfate [Proair Hfa] 2 puff IH Q4H PRN 06/26/20 [History] Budesonide/Formoterol Fumarate [Symbicort 160-4.5 Mcg Inhaler] 2 puff IH DAILY 06/26/20 [History] Ketorolac Tromethamine [Toradol] 1 tab PO Q6H PRN 06/26/20 [History] PANTOPRAZOLE 40 mg Tablet [Protonix 40MG Tablet] 1 tab PO BID 06/26/20 [History] Tramadol HCl 50 mg [Ultram 50 mg] 1 tab PO Q8H PRN 06/26/20 [History] Hx Tetanus, Diphtheria Vaccination/Date Given: Yes Hx Influenza Vaccination/Date Given: Yes Hx Pneumococcal Vaccination/Date Given: Yes Immunizations Up to Date: Yes Travel Risk - International Travel Have you traveled outside of the country in past 3 weeks: No - Coronavirus Screening Are you exhibiting any of the following symptoms?: No Close contact with a COVID-19 positive Pt in past 14-21 Days: No - Review of Systems Constitutional: No Symptoms Eyes: No Symptoms Ears, Nose, & Throat: No Symptoms Respiratory: No Symptoms Cardiac: No Symptoms Abdominal/Gastrointestinal: Abdominal Pain (At periumbilical postoperative site), Nausea, Vomiting Genitourinary Symptoms: No Symptoms Musculoskeletal: No Symptoms Skin: Cellulitis Neurological: No Symptoms (At postoperative periumbilical site) Psychological: No Symptoms Endocrine: No Symptoms Hematologic/Lymphatic: No Symptoms Immunological/Allergic: No Symptoms All Other Systems: Reviewed and Negative - Past Medical History Pertinent Past Medical History: Yes Neurological History: No Pertinent History ENT History: No Pertinent History Cardiac History: High Cholesterol, Hypertension, Other Respiratory History: Asthma, Bronchitis Endocrine Medical History: No Pertinent History Musculoskeletal History: Arthritis GI Medical History: Other History: No Pertinent History Psycho-Social History: Anxiety, Depression Male Reproductive Disorders: Prostate Problems Other Medical History: colon cancer, mitral valve prolapse - Past Surgical History Past Surgical History: Yes Neuro Surgical History: No Pertinent History Cardiac: No Pertinent History Respiratory: No Pertinent History Gastrointestinal: Colon Resection, Hernia Repair Genitourinary: No Pertinent History Musculoskeletal: Other Male Surgical History: No Pertinent History Other Surgical History: colon, back, bilateral hands, bilateral shoulders, eye - Social History Smoking Status: Never smoker Exposure to second hand smoke: Yes Drug Use: none Patient Lives Alone: No - Nursing Vital Signs Nursing Vital Signs: Initial Vital Signs Temperature 97.5 F 11/16/20 01:03 Pulse Rate 81 07/12/20 01:03 Respiratory Rate 20 07/12/20 01:03 Blood Pressure 141/102 07/12/20 01:03 O2 Sat by Pulse Oximetry 100 07/12/20 01:03 Pain Scale Pain Intensity 8 - Physical Exam General Appearance: no apparent distress Eye Exam: PERRL/EOMI, eyes nml inspection Ears, Nose, Throat Exam: normal ENT inspection, moist mucous membranes Neck Exam: normal inspection, non-tender, supple, full range of motion Respiratory Exam: normal breath sounds, lungs clear, airway intact, No chest tenderness, No respiratory distress Cardiovascular Exam: regular rate/rhythm, normal heart sounds, normal peripheral pulses Gastrointestinal/Abdomen Exam: soft, normal bowel sounds, tenderness (Localized at the postoperative umbilical site), No distention, No guarding Rectal Exam: not done Back Exam: normal inspection, normal range of motion, No CVA tenderness, No vertebral tenderness Extremity Exam: normal inspection, normal range of motion, pelvis stable Neurologic Exam: alert, oriented x 3, cooperative, pattern lease inspector II-XII nml as tested, normal mood/affect, nml cerebellar function, nml station & gait, sensation nml Skin Exam: normal color, warm, dry Lymphatic Exam: No adenopathy SpO2: 100 O2 Delivery: Room Air - Course Nursing assessment & vital signs reviewed: Yes Ordered Tests: Active Orders 24 hr Category Date Time Status IV Insertion STAT Care 07/12/20 01:17 Active AMYLASE Stat Lab 07/12/20 02:01 Completed CBC W DIFF Stat Lab 07/12/20 02:01 Completed CMP Stat Lab 07/12/20 02:01 Completed LIPASE Stat Lab 07/12/20 02:01 Completed Lactic Acid Stat Lab 07/12/20 01:58 Completed Medication Summary Discontinued Medications Generic Name Dose Route Start Last Admin Trade Name Freq PRN Reason Stop Dose Admin Hydromorphone HCl 1 mg 07/12/20 01:17 Hydromorphone 1 Mg/Ml Injection IV 07/12/20 01:18 STAT ONE Sodium Chloride 1,000 mls @ 999 mls/hr 07/12/20 01:17 Sodium Chloride 0.9% 1000 Ml IV 07/12/20 02:17 .Q1H1M STA Ondansetron HCl 4 mg 07/12/20 01:17 Zofran 4 Mg/2 Ml Vial IV 07/12/20 01:18 STAT ONE Lab/Rad Data: Laboratory Result Diagrams 07/12/20 02:01 07/12/20 02:01 Laboratory Results 07/12/20 07/12/20 07/12/20 Range/Units 02:01 02:01 01:58 WBC 9.3 (4.0-10.5) K/mm3 RBC 5.09 (4.1-5.6) M/mm3 Hgb 15.7 (12.5-18.0) gm/dl Hct 45.2 (42-50) % MCV 88.8 (78-100) fl MCH 30.8 (26-32) pg MCHC 34.7 (32-36) g/dl RDW 13.7 (11.5-14.0) % Plt Count 354 (150-450) K/mm3 MPV 9.7 (7.5-11.0) fl Gran % 65.2 (36.0-66.0) % Eos # (Auto) 0 (0-0.5) Absolute Lymphs (auto) 1.99 (1.0-4.6) Absolute Monos (auto) 1.21 (0.0-1.3) Lymphocytes % 21.4 L (24.0-44.0) % Monocytes % 13.0 H (0.0-12.0) % Eosinophils % 0.0 (0.00-5.0) % Basophils % 0.4 (0.0-0.4) % Absolute Granulocytes 6.07 (1.4-6.9) Basophils # 0.04 (0-0.4) Sodium 136 L (137-145) mmol/L Potassium 4.2 (3.5-5.1) mmol/L Chloride 99 (98-107) mmol/L Carbon Dioxide 31 H (22-30) mmol/L Anion Gap 10.7 (5-15) MEQ/L BUN 14 (9-20) mg/dL Creatinine 1.17 (0.66-1.25) mg/dL Estimated GFR > 60.0 ML/MIN Glucose 97 (74-106) mg/dL Lactic Acid 1.3 (0.4-2.0) Calcium 9.7 (8.4-10.2) mg/dL Total Bilirubin 0.50 (0.2-1.3) mg/dL AST 30 (17-59) U/L ALT 41 (0-50) U/L Alkaline Phosphatase 105 (38-126) U/L Serum Total Protein 7.5 (6.3-8.2) g/dL Albumin 4.2 (3.5-5.0) g/dL Amylase 101 (30-110) U/L Lipase 158 (23-300) U/L - Progress Progress: improved, pain not gone completely, re-examined Progress Note: 07/12/20 02:25 Medical decision making: I did not repeat the CAT scan on this patient. Patient had a CAT scan of the abdomen pelvis less than 48 hours ago. There there are no physical findings suggesting that the cellulitis is worsening. The patient's white count continues to be normal. The lactic acid is normal. Patient's temperature is also normal. I will provide the patient with a single dose of Dilaudid and Zofran here today. I will also send a prescriptions of Zofran to the patient's pharmacy. Patient is to follow-up with Dr. Brett Cruz's office today to make arrangements for an appointment. Counseled pt/family regarding: lab results, diagnosis, need for follow-up - Departure Departure Disposition: Home Clinical Impression: Nausea, Cellulitis, wound, post-operative Condition: Stable Critical Care Time: No Referrals: LALY HUSSEIN [Primary Care Provider] - Additional Instructions: Call Dr. Brett Cruz's office this morning after 8 AM to make arrangements for follow-up appointment. Continue your oral antibiotic and oral pain medicine as prescribed. instructional supervisor your prescription for Zofran to aid in treating nausea. Prescriptions: Ondansetron HCl [Zofran] 4 mg PO TID PRN #10 tablet PRN Reason: Nausea/Vomiting
[2020-07-12 02:09] LABS: Absolute Neutrophil Ct (ANC) 6.07 (1.4-6.9); BASOPHIL % 0.4 % (0.0-0.4); Basophil (Absolute #) 0.04 (0-0.4); Eosinophil (Absolute #) 0 (0-0.5); Hematocrit 45.2 % (42-50); Hemoglobin 15.7 gm/dl (12.5-18.0); Lymphocyte (Absolute #) 1.99 (1.0-4.6); Lymphocytes % 21.4 % (24.0-44.0); Mean Cell Volume 88.8 fl (78-100); Mean Corpuscular Hemoglobin 30.8 pg (26-32); Mean Corpuscular Hgb Concent. 34.7 g/dl (32-36); Mean Platelet Volume 9.7 fl (7.5-11.0); Monocyte (Absolute #) 1.21 (0.0-1.3); Neutrophil % 65.2 % (36.0-66.0); Platelet Count 354 K/mm3 (150-450); Red Blood Count 5.09 M/mm3 (4.1-5.6); Red Cell Distribution Width 13.7 % (11.5-14.0); White Blood Count 9.3 K/mm3 (4.0-10.5)
[2020-07-12 02:17] LABS: ALBUMIN 4.2 g/dL (3.5-5.0); ALKALINE PHOSPHATASE 105 U/L (38-126); AMYLASE 101 U/L (30-110); ANION GAP 10.7 MEQ/L (5-15); BLOOD UREA NITROGEN 14 mg/dL (9-20); CHLORIDE 99 mmol/L (98-107); Calcium 9.7 mg/dL (8.4-10.2); Carbon Dioxide 31 mmol/L (22-30); Creatinine 1 1.17 mg/dL (0.66-1.25); EST GLOMERULAR FILTRATION RATE > 60.0 ML/MIN; Glucose 97 mg/dL (74-106); LIPASE 158 U/L (23-300); Potassium 4.2 mmol/L (3.5-5.1); SGOT/AST 30 U/L (17-59); SGPT/ALT 41 U/L (0-50); SODIUM 136 mmol/L (137-145); Total Protein 7.5 g/dL (6.3-8.2)
[2020-07-12] MEDS ORDERED: Hydromorphone 1 mg/ml Injection ONE (02:26)
[2020-07-12] MEDS ORDERED: Zofran 4 MG/2 ML VIAL ONE (02:26)
[2020-07-12 03:01] VITALS: BP 133/90; PULSE 72; O2SAT 95
== END 2020-07-12 03:01 | disposition home or self-care (01) ==
LOC: ED 00:29
DX: R11.0 Nausea (principal); L03.316 Cellulitis of umbilicus; K91.872 Postprocedural seroma of a digestive system organ or structure following a digestive system procedure; I10 Essential (primary) hypertension; Z79.899 Other long term (current) drug therapy
CPT/HCPCS: 36000; 36415; 80053; 82150; 83605; 83690; 85025; 96374; 96375; 99284; J1170; J2405

== ENCOUNTER 2020-07-19 23:21 | Emergency (ER) | payer MEDICARE ==
--- NOTE | 2020-07-20 00:03 | ERPHSYRPT ---
- History of Present Illness Historian: patient Exam Limitations: other (Poor historian) Patient Subjective Stated Complaint: pt states "I have infected mesh from hernia surgery that is being repaired next week." pt states "The pain was easing up and is getting worse as the day goes on." pt states "I feel light headed." Triage Nursing Assessment: pt ambulated into the er; pt is axo x3; c/o abd pain; pt states 9/10 pain to lower midline abd; hx of hernia repair on 06/07/20; incision well aproximated, redness noted; abd is tender with palpation; abd is round, soft; active bowel sounds in all quads; denies N/V/D; states indigestion; states recent mesh repair became infected and states new surgery date of 07/29/20; clear lung sounds in all lobes; clear heart tones; hypertensive Physician History: 55 yo wm w ventral hernia repair per Dr. Cruz on 06/07/20 and scheduled for mesh removal "nex week" due to "infection" presents w abdominal pain x 3 wks which is worse last 1-2 days. Pt happens to be out of his [place] for 3-4 days. Pain worse w movement and rated a 9. He denies fever/nausea/vomiting/diarrhea/dysuria/hematuria. Timing/Duration: other (3 wks, worese tonight) Quality: sharpness Abdominal Pain Onset Location: periumbilical Pain Radiation: no radiation Severity of Pain-Max: severe Severity of Pain-Current: severe Modifying Factors: Improves With: nothing Associated Symptoms: No back, No chest pain, No diaphoresis, No diarrhea, No fever/chills, No fatigue, No headache, No heartburn, No loss of appetite, No nausea, No neck pain, No rash, No shortness of breath, No syncope, No testicular pain, No vomiting, No weakness Previous symptoms: same symptoms as today Allergies/Adverse Reactions: codeine Allergy (Verified 07/19/20 23:30) Penicillins Allergy (Verified 07/19/20 23:30) Home Medications: Diazepam 5 mg [Valium 5 MG] 5 mg PO DAILY PRN 06/25/20 [History] Quetiapine Fumarate 100 mg [Seroquel 100 MG] 200 mg PO HS 06/25/20 [History] Venlafaxine HCl ER 75 mg [Effexor XR 75 MG] 75 mg PO DAILY 06/25/20 [History] Albuterol Sulfate [Proair Hfa] 2 puff IH Q4H PRN 06/26/20 [History] Budesonide/Formoterol Fumarate [Symbicort 160-4.5 Mcg Inhaler] 2 puff IH DAILY 06/26/20 [History] PANTOPRAZOLE 40 mg Tablet [Protonix 40MG Tablet] 1 tab PO BID 06/26/20 [History] Tramadol HCl 50 mg [Ultram 50 mg] 1 tab PO Q8H PRN 06/26/20 [History] Hx Tetanus, Diphtheria Vaccination/Date Given: Yes Hx Influenza Vaccination/Date Given: Yes Hx Pneumococcal Vaccination/Date Given: Yes Travel Risk - International Travel Have you traveled outside of the country in past 3 weeks: No - Coronavirus Screening Are you exhibiting any of the following symptoms?: No Close contact with a COVID-19 positive Pt in past 14-21 Days: No - Review of Systems Constitutional: No Symptoms Eyes: No Symptoms Ears, Nose, & Throat: No Symptoms Respiratory: No Symptoms Cardiac: No Symptoms Genitourinary Symptoms: No Symptoms Musculoskeletal: No Symptoms Skin: No Symptoms Neurological: No Symptoms Psychological: No Symptoms Endocrine: No Symptoms Hematologic/Lymphatic: No Symptoms Immunological/Allergic: No Symptoms - Past Medical History Pertinent Past Medical History: Yes Neurological History: No Pertinent History ENT History: No Pertinent History Cardiac History: High Cholesterol, Hypertension, Other Respiratory History: Asthma, Bronchitis Endocrine Medical History: No Pertinent History Musculoskeletal History: Arthritis GI Medical History: Hernia, Other History: No Pertinent History Psycho-Social History: Anxiety, Depression Male Reproductive Disorders: Prostate Problems Other Medical History: colon cancer, mitral valve prolapse - Past Surgical History Past Surgical History: Yes Neuro Surgical History: No Pertinent History Cardiac: No Pertinent History Respiratory: No Pertinent History Gastrointestinal: Colon Resection, Hernia Repair Genitourinary: No Pertinent History Musculoskeletal: Other Male Surgical History: No Pertinent History Other Surgical History: colon, back, bilateral hands, bilateral shoulders, eye - Social History Smoking Status: Never smoker Exposure to second hand smoke: Yes Drug Use: none Patient Lives Alone: No Significant Family History: no pertinent family hx - Nursing Vital Signs Nursing Vital Signs: Initial Vital Signs Temperature 98.8 F 07/19/20 23:33 Pulse Rate 89 07/19/20 23:33 Blood Pressure 163/98 07/19/20 23:33 O2 Sat by Pulse Oximetry 99 07/19/20 23:33 Pain Scale Pain Intensity 8 - Physical Exam General Appearance: no apparent distress Eye Exam: PERRL/EOMI, post op pupil defect (L) Ears, Nose, Throat Exam: normal ENT inspection, TMs normal, pharynx normal, moist mucous membranes Neck Exam: normal inspection, non-tender, supple, full range of motion, No meningismus, No mass, No Brudzinski, No Kernig's Respiratory Exam: normal breath sounds, lungs clear, airway intact, No respiratory distress Cardiovascular Exam: regular rate/rhythm, normal heart sounds, No murmur Gastrointestinal/Abdomen Exam: soft (Bryanna-umbilical/incisional ttp/mild incisional erthema/no guarding/No rebound) Back Exam: normal inspection, normal range of motion, No CVA tenderness, No vertebral tenderness Extremity Exam: normal inspection, normal range of motion Neurologic Exam: alert, oriented x 3, cooperative, research center director II-XII nml as tested, normal mood/affect, sensation nml, No motor deficits, No sensory deficit Skin Exam: normal color, warm, dry, No rash Lymphatic Exam: No adenopathy SpO2 Interpretation: normal SpO2: 99 O2 Delivery: Room Air - Course Nursing assessment & vital signs reviewed: Yes - CT Exams Abdomen/Pelvis CT Interpretation: Tele-radiologist Report (Post-operative fluid collection, probable seroma) Ordered Tests: Active Orders 24 hr Category Date Time Status ABDOMEN AND PELVIS W/0 CONTRAS [CT] Routine Exams 07/20/20 00:27 Taken Lactic Acid Stat Lab 07/19/20 23:55 Completed Lactic Acid Stat Lab 07/20/20 02:25 Completed Lactic Acid Stat Lab 07/20/20 02:29 Received UA W/RFX UR CULTURE Stat Lab 07/20/20 00:10 Completed Medication Summary Discontinued Medications Generic Name Dose Route Start Last Admin Trade Name Freq PRN Reason Stop Dose Admin Doxycycline Hyclate 100 mg 07/20/20 00:51 07/20/20 01:03 Vibramycin 100 Mg PO 07/20/20 00:52 100 mg STAT ONE Administration Doxycycline Hyclate Confirm 07/20/20 01:01 Vibramycin 100 Mg Administered 07/20/20 01:02 Dose 100 mg .ROUTE .STK-MED ONE Sodium Chloride 1,000 mls @ 999 mls/hr 07/20/20 00:55 07/20/20 02:24 Sodium Chloride 0.9% 1000 Ml IV 07/20/20 01:55 Infused .Q1H1M STA Infusion Sodium Chloride Confirm 07/20/20 01:01 Sodium Chloride 0.9% 1000 Ml Administered 07/20/20 01:02 Dose 1,000 mls @ ud .ROUTE .STK-MED ONE Ketorolac Tromethamine 30 mg 07/20/20 00:50 07/20/20 01:03 Toradol 30 Mg Injection IV 07/20/20 00:51 30 mg STAT ONE Administration Ketorolac Tromethamine Confirm 07/20/20 01:01 Toradol 30 Mg Injection Administered 07/20/20 01:02 Dose 30 mg .ROUTE .STK-MED ONE Lab/Rad Data: Laboratory Result Diagrams 07/19/20 00:05 07/19/20 00:05 Laboratory Results 07/20/20 07/20/20 07/20/20 Range/Units 02:25 00:20 00:10 WBC (4.0-10.5) K/mm3 RBC (4.1-5.6) M/mm3 Hgb (12.5-18.0) gm/dl Hct (42-50) % MCV (78-100) fl MCH (26-32) pg MCHC (32-36) g/dl RDW (11.5-14.0) % Plt Count (150-450) K/mm3 MPV (7.5-11.0) fl Gran % (36.0-66.0) % Eos # (Auto) (0-0.5) Absolute Lymphs (auto) (1.0-4.6) Absolute Monos (auto) (0.0-1.3) Lymphocytes % (24.0-44.0) % Monocytes % (0.0-12.0) % Eosinophils % (0.00-5.0) % Basophils % (0.0-0.4) % Absolute Granulocytes (1.4-6.9) Basophils # (0-0.4) Sodium (137-145) mmol/L Potassium (3.5-5.1) mmol/L Chloride (98-107) mmol/L Carbon Dioxide (22-30) mmol/L Anion Gap (5-15) MEQ/L BUN (9-20) mg/dL Creatinine (0.66-1.25) mg/dL Estimated GFR ML/MIN Glucose (74-106) mg/dL Lactic Acid 1.0 2.4 H (0.4-2.0) Calcium (8.4-10.2) mg/dL Total Bilirubin (0.2-1.3) mg/dL AST (17-59) U/L ALT (0-50) U/L Alkaline Phosphatase (38-126) U/L Troponin I (0.000-0.034) ng/mL Serum Total Protein (6.3-8.2) g/dL Albumin (3.5-5.0) g/dL Amylase (30-110) U/L Lipase (23-300) U/L Urine Color YELLOW (YELLOW) Urine Appearance CLEAR (CLEAR) Urine pH 7.0 (5-6) Ur Specific Excel 1.017 (1.005-1.025) Urine Protein NEGATIVE (Negative) Urine Ketones NEGATIVE (NEGATIVE) Urine Blood NEGATIVE (0-5) Graham/ul Urine Nitrite NEGATIVE (NEGATIVE) Urine Bilirubin NEGATIVE (NEGATIVE) Urine Urobilinogen NEGATIVE (0-1) mg/dL Ur Leukocyte Esterase NEGATIVE (NEGATIVE) Urine WBC (Auto) NONE (0-5) /HPF Urine RBC (Auto) NONE (0-2) /HPF U Epithel Cells (Auto) NONE (FEW) /HPF Urine Bacteria (Auto) NONE (NEGATIVE) /HPF Urine Mucus (Auto) SLIGHT (NEGATIVE) /HPF Urine Culture Reflexed NO (NO) Urine Glucose NEGATIVE (NEGATIVE) mg/dL 07/19/20 07/19/20 07/19/20 Range/Units 00:05 00:05 00:05 WBC 11.3 H (4.0-10.5) K/mm3 RBC 4.89 (4.1-5.6) M/mm3 Hgb 14.8 (12.5-18.0) gm/dl Hct 43.7 (42-50) % MCV 89.4 (78-100) fl MCH 30.3 (26-32) pg MCHC 33.9 (32-36) g/dl RDW 13.5 (11.5-14.0) % Plt Count 356 (150-450) K/mm3 MPV 10.0 (7.5-11.0) fl Gran % 60.2 (36.0-66.0) % Eos # (Auto) 0 (0-0.5) Absolute Lymphs (auto) 3.26 (1.0-4.6) Absolute Monos (auto) 1.20 (0.0-1.3) Lymphocytes % 28.8 (24.0-44.0) % Monocytes % 10.6 (0.0-12.0) % Eosinophils % 0.0 (0.00-5.0) % Basophils % 0.4 (0.0-0.4) % Absolute Granulocytes 6.82 (1.4-6.9) Basophils # 0.04 (0-0.4) Sodium 137 (137-145) mmol/L Potassium 4.4 (3.5-5.1) mmol/L Chloride 98 (98-107) mmol/L Carbon Dioxide 31 H (22-30) mmol/L Anion Gap 12.4 (5-15) MEQ/L BUN 12 (9-20) mg/dL Creatinine 1.29 H (0.66-1.25) mg/dL Estimated GFR > 60.0 ML/MIN Glucose 102 (74-106) mg/dL Lactic Acid (0.4-2.0) Calcium 9.7 (8.4-10.2) mg/dL Total Bilirubin 0.40 (0.2-1.3) mg/dL AST 26 (17-59) U/L ALT 31 (0-50) U/L Alkaline Phosphatase 92 (38-126) U/L Troponin I < 0.012 (0.000-0.034) ng/mL Serum Total Protein 7.5 (6.3-8.2) g/dL Albumin 4.2 (3.5-5.0) g/dL Amylase 120 H (30-110) U/L Lipase 180 (23-300) U/L Urine Color (YELLOW) Urine Appearance (CLEAR) Urine pH (5-6) Ur Specific Excel (1.005-1.025) Urine Protein (Negative) Urine Ketones (NEGATIVE) Urine Blood (0-5) Graham/ul Urine Nitrite (NEGATIVE) Urine Bilirubin (NEGATIVE) Urine Urobilinogen (0-1) mg/dL Ur Leukocyte Esterase (NEGATIVE) Urine WBC (Auto) (0-5) /HPF Urine RBC (Auto) (0-2) /HPF U Epithel Cells (Auto) (FEW) /HPF Urine Bacteria (Auto) (NEGATIVE) /HPF Urine Mucus (Auto) (NEGATIVE) /HPF Urine Culture Reflexed (NO) Urine Glucose (NEGATIVE) mg/dL - Progress Progress: improved Progress Note: 07/20/20 01:55 1L NS bolus/100mg po doxycycline/30mg IV toradol 07/20/20 02:34 Pt's lactate decreased after fluids Counseled pt/family regarding: lab results, diagnosis, need for follow-up, rad results - Departure Departure Disposition: Home Clinical Impression: Seroma complicating a procedure Condition: Stable Critical Care Time: No Referrals: LALY HUSSEIN [Primary Care Provider] - Instructions: Acute Abdomen (Belly Pain), Adult (DC) Additional Instructions: Continue doxycycline in AM Follow up with Dr. Cruz in AM Return to ER for increasing pain or temperature greater than 100.5 Prescriptions: Doxycycline Monohydrate 100 mg PO BID #14 tablet Ketorolac Tromethamine [Toradol] 10 mg PO TID PRN PRN #10 tablet PRN Reason: Pain
[2020-07-20 00:20] LABS: Absolute Neutrophil Ct (ANC) 6.82 (1.4-6.9); BASOPHIL % 0.4 % (0.0-0.4); Basophil (Absolute #) 0.04 (0-0.4); Eosinophil (Absolute #) 0 (0-0.5); Hematocrit 43.7 % (42-50); Hemoglobin 14.8 gm/dl (12.5-18.0); Lymphocyte (Absolute #) 3.26 (1.0-4.6); Lymphocytes % 28.8 % (24.0-44.0); Mean Cell Volume 89.4 fl (78-100); Mean Corpuscular Hemoglobin 30.3 pg (26-32); Mean Corpuscular Hgb Concent. 33.9 g/dl (32-36); Monocytes % 10.6 % (0.0-12.0); Neutrophil % 60.2 % (36.0-66.0); Platelet Count 356 K/mm3 (150-450); Red Blood Count 4.89 M/mm3 (4.1-5.6); Red Cell Distribution Width 13.5 % (11.5-14.0); White Blood Count 11.3 K/mm3 (4.0-10.5)
[2020-07-20 00:33] LABS: ALBUMIN 4.2 g/dL (3.5-5.0); ALKALINE PHOSPHATASE 92 U/L (38-126); AMYLASE 120 U/L (30-110); ANION GAP 12.4 MEQ/L (5-15); BLOOD UREA NITROGEN 12 mg/dL (9-20); CHLORIDE 98 mmol/L (98-107); Calcium 9.7 mg/dL (8.4-10.2); Carbon Dioxide 31 mmol/L (22-30); Creatinine 1 1.29 mg/dL (0.66-1.25); EST GLOMERULAR FILTRATION RATE > 60.0 ML/MIN; Glucose 102 mg/dL (74-106); LIPASE 180 U/L (23-300); Potassium 4.4 mmol/L (3.5-5.1); SGOT/AST 26 U/L (17-59); SGPT/ALT 31 U/L (0-50); SODIUM 137 mmol/L (137-145); Total Protein 7.5 g/dL (6.3-8.2)
[2020-07-20 00:35] LABS: Appearance CLEAR (CLEAR); Bilirubin NEGATIVE (NEGATIVE); Blood NEGATIVE Ery/ul (0-5); Glucose NEGATIVE (NEGATIVE); Ketones NEGATIVE (NEGATIVE); Leukocyte Esterase NEGATIVE (NEGATIVE); Mucus SLIGHT /HPF (NEGATIVE); Nitrite NEGATIVE (NEGATIVE); Protein,Urine Dip NEGATIVE (Negative); Specific Gravity 1.017 (1.005-1.025); Urobilinogen NEGATIVE mg/dL (0-1)
[2020-07-20] MEDS ORDERED: TORAdol 30 mg Injection IV ONE (00:50)
[2020-07-20] MEDS ORDERED: Vibramycin 100 MG PO ONE (00:51)
[2020-07-20] MEDS ORDERED: Sodium Chloride 0.9% 1000 ML 1,000 ML IV STA (00:55)
[2020-07-20] MEDS ORDERED: TORAdol 30 mg Injection ONE (01:01)
[2020-07-20] MEDS ORDERED: Vibramycin 100 MG ONE (01:01)
[2020-07-20] MEDS ORDERED: Sodium Chloride 0.9% 1000 ML 1,000 ML ONE (01:01)
[2020-07-20 02:39] VITALS: O2SAT 99
[2020-07-20 02:45] VITALS: BP 153/82; PULSE 82
--- NOTE | 2020-07-20 09:03 | XRAY ---
Indication: Abdomen pain. Status post hernia surgery June 07, 2020. Multiple contiguous axial images obtained through the abdomen and pelvis without contrast as ordered. Comparison: July 10, 2020. Lung bases remain clear. Heart is not enlarged. Umbilicus subcutaneous's fluid collection continues to appear smaller today measuring 2.4 x 3.2 x 2.8 cm, previously 3.4 x 3.7 x 3.5 cm. Findings again probably postoperative hematoma/seroma. Infection not completely excluded in the right clinical setting. There is again ventral hernia mesh graft without hernia. Stomach is distended with food/fluid. Noncontrasted stomach and bowel loops remain nonobstructed. Normal appendix and intact sigmoid anastomosis. There is now mild diffuse scattered colonic fecal debris including rectum. Stable cholecystectomy. No free fluid/air. Remaining liver, pancreas, spleen, adrenal glands, kidneys, ureters, and bladder appear unremarkable for noncontrast exam. Stable minimal aortoiliac calcifications without AAA. Impression: 1. Umbilicus subcutaneous fluid collection continues to appear smaller, favoring postoperative hematoma/seroma. Infection not completely excluded in the right clinical setting. 2. Diffuse fecal stasis without obstruction. 3. Remaining CT abdomen/pelvis without contrast exam is negative. Comment: Preliminary interpretation was made by C. No critical discrepancy.
== END 2020-07-20 02:42 | disposition home or self-care (01) ==
LOC: ED 23:21
DX: K91.872 Postprocedural seroma of a digestive system organ or structure following a digestive system procedure (principal)
CPT/HCPCS: 36000; 36415; 74176; 80053; 81001; 82150; 83605; 83690; 84484; 85025; 96374; 99284; J1885; A9270-GY

== ENCOUNTER 2020-07-29 10:01 | Day surgery (SDC) | payer MEDICARE ==
--- NOTE | 2020-07-26 15:22 | HP ---
DATE OF SURGERY: 07/29/2020 HISTORY OF PRESENT ILLNESS: The patient presents to the office with complaints of abdominal wall hernia. It appears that he had a hernia repaired before on the abdominal wall with some mesh. It appears this is possibly an infection. He tried some outpatient antibiotics and that has not seemed to improve his situation. PAST MEDICAL HISTORY: Hyperlipidemia, depression, reflux, hypertension, asthma. PAST SURGICAL HISTORY: Ventral hernia repair. ALLERGIES: PENICILLIN. CODEINE. MEDICATIONS: Atorvastatin, Venlafaxine, Imuran, pantoprazole, Pepcid, metoprolol, Albuterol inhaler. FAMILY HISTORY: None reported. SOCIAL HISTORY: Negative. REVIEW OF SYSTEMS: CONSTITUTIONAL: Denies fever or chills. CHEST: Denies shortness of breath. CVS: Denies chest pain. ABDOMEN: Denies abdominal pain, nausea, vomiting, diarrhea, constipation or rectal bleeding. INTEGUMENTARY: Mild cellulitis. Abdominal wall hernia. PHYSICAL EXAMINATION: GENERAL: No acute distress. CHEST: Nonlabored. No shortness of breath. CVS: Regular rate and rhythm. ABDOMEN: Abdominal wall hernia, tender to palpation. EXTREMITIES: No edema. INTEGUMENTARY: Warm, pink, no rash. NEUROLOGIC: Alert. PSYCHIATRIC: Appropriate. IMPRESSION: Mesh infection and recurrent abdominal wall hernia. PLAN: Mesh extraction with primary repair abdominal wall hernia with Dr. Brett Cruz. As dictated by Azucena Calixto NP.
[~2020-07-29 10:01] MED LIST: KEFZOL 1 GM ONE; Lactated Ringers 1,000 ML IV ONE; Sensorcaine 0.25% 10 ML ONE
[2020-07-29] MEDS ORDERED: Lactated Ringers 1,000 ML IV SCH (10:30)
[2020-07-29] MEDS ORDERED: CLINDAMYCIN-D5W 900 MG/50 ML*** 900 MG/50 ML BAG IV SCH (10:30)
[2020-07-29 10:57] LABS: Hemoglobin 13.9 gm/dl (12.5-18.0); Mean Cell Volume 90.3 fl (78-100); Mean Corpuscular Hemoglobin 29.2 pg (26-32); Mean Corpuscular Hgb Concent. 32.3 g/dl (32-36); Mean Platelet Volume 9.7 fl (7.5-11.0); Platelet Count 365 K/mm3 (150-450); Red Blood Count 4.76 M/mm3 (4.1-5.6); Red Cell Distribution Width 14.1 % (11.5-14.0); White Blood Count 8.1 K/mm3 (4.0-10.5)
[2020-07-29 11:26] LABS: ANION GAP 12.3 MEQ/L (5-15); BLOOD UREA NITROGEN 11 mg/dL (9-20); CHLORIDE 104 mmol/L (98-107); Calcium 9.3 mg/dL (8.4-10.2); Carbon Dioxide 27 mmol/L (22-30); Creatinine 1 1.04 mg/dL (0.66-1.25); EST GLOMERULAR FILTRATION RATE > 60.0 ML/MIN; Glucose 120 mg/dL (74-106); Potassium 4.3 mmol/L (3.5-5.1); SODIUM 138 mmol/L (137-145)
[2020-07-29] MEDS ORDERED: Zemuron 100 MG/10 ML ONE (13:50)
[2020-07-29] MEDS ORDERED: Versed 2 MG/2 ML Injection ONE (13:50)
[2020-07-29] MEDS ORDERED: DIPRIVAN 200 MG/20 ML IV ONE (13:50)
[2020-07-29] MEDS ORDERED: SUBLIMAZE 250 MCG/5 ML ONE (13:50)
[2020-07-29] MEDS ORDERED: Ephedrine Sulfate 50 MG/ML ONE (14:05)
[2020-07-29] MEDS ORDERED: Lactated Ringers 0 ML IV ONE (14:14)
[2020-07-29] MEDS ORDERED: PHENYLEPHRINE HCL ONE (14:14)
[2020-07-29] MEDS ORDERED: BRIDION 200MG/2ML IV ONE (15:08)
[2020-07-29] MEDS ORDERED: NORCO 5/325 MG PO PRN (17:18)
[2020-07-29 17:59] VITALS: O2SAT 94
[2020-07-29 18:24] VITALS: BP 140/88; PULSE 70
--- NOTE | 2020-07-30 08:09 | OP ---
SURGERY DATE/TIME: 07/29/2020 1349 PREOPERATIVE DIAGNOSIS: Severely painful, inflamed umbilical hernia with previous mesh. POSTOPERATIVE DIAGNOSIS: Severely painful, inflamed umbilical hernia with previous mesh. PROCEDURE: Exploration of the umbilical area with total removal of the previously placed circular mesh with tacks and primary re-approximation with suture repair only. SURGEON: Brett Cruz M.D. ANESTHESIA: General. COMPLICATIONS: None. CONDITION: Stable. INDICATION: A patient with the above condition. DESCRIPTION OF PROCEDURE: Taken to surgery. General anesthetic. Routine prep and drape. Infra-umbilical incision was re-entered. It was extended slightly. The inflammatory area was dissected. It was markedly inflamed nearly 1 cm thick. The mesh was identified. The mesh had been excellently placed intra-abdominally. It was totally secure around the whole 360 and with care and patience slight extension of the defect in the central portion that was 2 x 1.75 cm and the edge was exposed and the mesh was lifted up and the tacks were also taken out this was all slightly above the perineal bowel surface. At this time this edge was satisfactory for suture repair. Eight sutures were placed under direct visualization in two bites each and then they were tied down under direct visualization. Subcutaneous tissue irrigated. A 7 MAXIMO was placed. Subcutaneous tissue closed with 3-0 Vicryl. Skin closed with josef. Sterile dressing applied. The patient tolerated the procedure satisfactorily.
== END 2020-07-29 18:30 | disposition home or self-care (01) ==
LOC: SDC 10:01
PROVIDERS: ATTEND Surgery
DX: K42.9 Umbilical hernia without obstruction or gangrene (principal); I10 Essential (primary) hypertension; E78.5 Hyperlipidemia, unspecified; J45.909 Unspecified asthma, uncomplicated; K21.9 Gastro-esophageal reflux disease without esophagitis; Z79.899 Other long term (current) drug therapy
CPT/HCPCS: 36415; 80048; 85027; 87070; 93005; 94250; J0690; J2250; J2370; J2704; J3010; L0625; A9270-GY

== ENCOUNTER 2020-09-16 05:43 | Day surgery (SDC) | payer MEDICARE ==
[2020-09-16] MEDS ORDERED: Lactated Ringers 1,000 ML IV SCH (06:30)
[2020-09-16] MEDS ORDERED: DIPRIVAN 200 MG/20 ML IV ONE ×2 (07:49→08:03)
[2020-09-16] MEDS ORDERED: SUBLIMAZE 100 MCG/2 ML ONE (08:04)
--- NOTE | 2020-09-16 08:06 | HP ---
DATE OF SURGERY: 09/16/2020 HISTORY OF PRESENT ILLNESS: The patient presented to the office without appointment with complaints of rectal bleeding. He states that he has had a history of colon cancer and is now having some intermittent rectal bleeding that is bright red. It looks like his last colonoscopy was a year ago. The patient is also complaining of some pain. He recently within the past couple of months has had infected mesh and umbilical hernia repaired. He appeared to be doing fine from that. He was seen in the office by Dr. Robles. PAST MEDICAL HISTORY: Colon cancer, hyperlipidemia, asthma, reflux, hypertension, depression. PAST SURGICAL HISTORY: Umbilical hernia. Exploration with removal of infected mesh. Ventral hernia repair. FAMILY HISTORY: None reported. SOCIAL HISTORY: None. MEDICATIONS: Albuterol inhalers, Seroquel, metoprolol, Pepcid, pantoprazole, Singulair, venlafaxine, Atorvastatin, ALLERGIES: CODEINE. PENICILLIN. REVIEW OF SYSTEMS: CONSTITUTIONAL: Denies fever or chills. CHEST: Denies shortness of breath. HEART: Denies chest pain. ABDOMEN: Reports abdominal pain. Denies nausea, vomiting, diarrhea, constipation. Reports rectal bleeding. INTEGUMENTARY: Negative. PHYSICAL EXAMINATION: GENERAL: No acute distress. CHEST: Nonlabored. No shortness of breath. HEART: Regular rate and rhythm. ABDOMEN: Soft, tender to palpation. EXTREMITIES: No edema. NEURO: Alert. PSYCH: Appropriate. IMPRESSION: Bright red rectal bleeding and history of colon cancer. PLAN: Colonoscopy with Dr. Brett Cruz. As dictated by Azucena Calixto NP.
[2020-09-16 09:07] VITALS: O2SAT 99
[2020-09-16 09:21] VITALS: BP 145/95; PULSE 87
--- NOTE | 2020-09-17 07:46 | OP ---
SURGERY DATE/TIME: 09/16/2020 0750 PREOPERATIVE DIAGNOSES: 1) Rectal bleeding. 2) History of colon resection for cancer in 2018. POSTOPERATIVE DIAGNOSIS: Findings normal. PROCEDURE: Colonoscopy to cecum. SURGEON: Brett Cruz M.D. ANESTHESIA: MAC/general. COMPLICATIONS: None. CONDITION: Stable. WITHDRAWAL TIME: 6 minutes. PREP SCORE: Excellent. INDICATION: A patient requiring evaluation. He has had colon resection for cancer in 2018. He also had some bright red blood per toilet paper. DESCRIPTION OF PROCEDURE: He is taken to endoscopy. Left lateral decubitus position. MAC/general anesthetic performed. Anal digital examination satisfactory. Prostate is satisfactory. Scope introduced. Anastomosis rectosigmoid. Functional end and the blind end was normal. Anastomotic ring was normal. Scope advanced up the descending, splenic, transverse, hepatic, ascending and cecum. A fair amount of colon left. Scope was just to the hilt here. Appendiceal normal. Ileocecal valve normal. Base of the cecum normal. Ascending, hepatic, transverse, splenic, descending anastomosis, rectum normal. There were no signs of bleeding today. There was scant hemorrhoidal disease. There was no rectal bleeding. There was no anastomotic bleeding. The left scope was excellent. Follow up in two to three years.
== END 2020-09-16 09:34 | disposition home or self-care (01) ==
LOC: SDC 05:43
PROVIDERS: ATTEND Surgery
DX: K62.5 Hemorrhage of anus and rectum (principal); Z85.038 Personal history of other malignant neoplasm of large intestine; Z90.49 Acquired absence of other specified parts of digestive tract; K64.9 Unspecified hemorrhoids; I10 Essential (primary) hypertension; E78.5 Hyperlipidemia, unspecified; Z79.899 Other long term (current) drug therapy
CPT/HCPCS: J2704; J3010

== ENCOUNTER 2020-09-29 02:06 | Emergency (ER) | payer OTHER ==
--- NOTE | 2020-09-29 02:59 | ERPHSYRPT ---
- History of Present Illness Time Seen by Provider: 09/29/20 02:10 Source: patient Exam Limitations: no limitations Patient Subjective Stated Complaint: pt states he has had a cough and shortness of breath since yesterday. states he has pain in his chest and is worse with cough and deep breath Triage Nursing Assessment: pt alert and oriented, answers questions approp. pt ambulatory with slow steady gait noted. respirations nonlabored with lungs cta. pt reports shortness of breath at rest and chest pain worsening with cough or deep breath. skin warm and dry. heart rate 85 sinus rhythm on monitor. Physician History: Patient is a 55-year-old male presents to our emergency department with complaints of cough shortness of breath and chest pain. Symptoms started yesterday. Patient was swabbed forCovid. Cough is dry nonproductive. Chest pain occurs only with cough and deep inspiration. No chest pain at rest. No associated nausea or vomiting. No diarrhea. Patient has also been experiencing URI symptomology. Rhinorrhea and nasal congestion. Symptoms are constant. Symptoms are mild to moderate in intensity. No specific worsening or improving factors. Patient voices no other complaints or concerns at this time. Timing/Duration: yesterday Severity: moderate Modifying Factors: Improves With: nothing Associated Symptoms: denies symptoms Allergies/Adverse Reactions: codeine Allergy (Verified 09/16/20 06:21) Nausea Penicillins Allergy (Verified 09/16/20 06:21) Rash Home Medications: Quetiapine Fumarate 100 mg [Seroquel 100 MG] 200 mg PO HS 06/25/20 [History] Venlafaxine HCl ER 75 mg [Effexor XR 75 MG] 150 mg PO DAILY 06/25/20 [History] Albuterol Sulfate [Proair Hfa] 2 puff IH Q4H PRN 06/26/20 [History] PANTOPRAZOLE 40 mg Tablet [Protonix 40MG Tablet] 1 tab PO BID 06/26/20 [History] Atorvastatin Calcium [Lipitor] 80 mg PO HS 07/21/20 [History] Metoprolol Tartrate 25 mg [Lopressor 25MG Tab] 25 mg PO BID 07/21/20 [History] Montelukast Sodium 10 mg [Singulair 10 MG] 10 mg PO HS 07/21/20 [History] Albuterol 2.5 mg/3 ml Neb [Proventil 2.5 mg/3 ml Neb] 2.5 mg IH UD PRN 07/29/20 [History] Famotidine [Pepcid] 40 mg PO BID 09/13/20 [History] Hx Tetanus, Diphtheria Vaccination/Date Given: Yes Hx Influenza Vaccination/Date Given: Yes Hx Pneumococcal Vaccination/Date Given: Yes Immunizations Up to Date: Yes Travel Risk - International Travel Have you traveled outside of the country in past 3 weeks: No - Coronavirus Screening Are you exhibiting any of the following symptoms?: Yes Symptoms: Cough: New Onset, Shortness of Breath, Headaches/Body Aches/Fatigue Close contact with a COVID-19 positive Pt in past 14-21 Days: No - Review of Systems Constitutional: No Symptoms, No Fever, No Chills Eyes: No Symptoms Ears, Nose, & Throat: No Symptoms Respiratory: No Symptoms, No Cough, No Dyspnea Cardiac: No Symptoms, No Chest Pain, No Edema, No Syncope Abdominal/Gastrointestinal: No Symptoms, No Abdominal Pain, No Nausea, No Vomiting, No Diarrhea Genitourinary Symptoms: No Symptoms, No Dysuria Musculoskeletal: No Symptoms, No Back Pain, No Neck Pain Skin: No Symptoms, No Rash Neurological: No Symptoms, No Dizziness, No Focal Weakness, No Sensory Changes Psychological: No Symptoms Endocrine: No Symptoms Hematologic/Lymphatic: No Symptoms Immunological/Allergic: No Symptoms All Other Systems: Reviewed and Negative - Past Medical History Pertinent Past Medical History: Yes Neurological History: No Pertinent History ENT History: No Pertinent History Cardiac History: High Cholesterol, Hypertension, Other Respiratory History: Asthma, Bronchitis Endocrine Medical History: No Pertinent History Musculoskeletal History: Arthritis GI Medical History: Hernia, Other History: No Pertinent History Psycho-Social History: Anxiety, Depression Male Reproductive Disorders: Prostate Problems Other Medical History: colon cancer Jul 2018, mitral valve prolapse. heart cath " OK" no Stenting. - Past Surgical History Past Surgical History: Yes Neuro Surgical History: No Pertinent History Cardiac: Cardiac Catheterization Respiratory: No Pertinent History Gastrointestinal: Cholecystectomy, Colon Resection, Hernia Repair Genitourinary: No Pertinent History Musculoskeletal: Other Male Surgical History: No Pertinent History Other Surgical History: colon resection r/t cancer Jul 2018, bilateral hands(joints) right shoulder (rotator cuff) eye as a child (unknown), umbil. hernia repair, - Social History Smoking Status: Never smoker Exposure to second hand smoke: Yes Drug Use: none Patient Lives Alone: No Significant Family History: no pertinent family hx - Nursing Vital Signs Nursing Vital Signs: Initial Vital Signs Temperature 97.5 F 09/29/20 02:08 Pulse Rate 88 09/29/20 02:08 Respiratory Rate 18 09/29/20 02:08 Blood Pressure 171/111 09/29/20 02:08 O2 Sat by Pulse Oximetry 100 09/29/20 02:08 Pain Scale Pain Intensity 4 - Physical Exam General Appearance: no apparent distress, alert Eye Exam: PERRL/EOMI, eyes nml inspection Ears, Nose, Throat Exam: normal ENT inspection, TMs normal, pharynx normal, moist mucous membranes, other (URI) Neck Exam: normal inspection, non-tender, supple, full range of motion Respiratory Exam: normal breath sounds, lungs clear, No respiratory distress Cardiovascular Exam: regular rate/rhythm, normal heart sounds, normal peripheral pulses Gastrointestinal/Abdomen Exam: soft, normal bowel sounds, No tenderness, No mass Back Exam: normal inspection, normal range of motion, No CVA tenderness, No vertebral tenderness Extremity Exam: normal inspection, normal range of motion, pelvis stable Neurologic Exam: alert, oriented x 3, cooperative, normal mood/affect, nml cerebellar function, nml station & gait, sensation nml, No motor deficits Skin Exam: normal color, warm, dry, No rash Lymphatic Exam: No adenopathy SpO2 Interpretation: normal SpO2: 100 O2 Delivery: Room Air - Course Nursing assessment & vital signs reviewed: Yes EKG Interpreted by Me: RATE (82), Sinus Rhythm, NORMAL AXIS, NORMAL INTERVALS - Radiology Exams Chest X-ray Interpretation: Interpreted by me (Lung aldana are clear. Cardiac silhouette within normal limits. Intact bony thorax. Normal chest x-ray.) - CT Exams Chest CT Interpretation: Tele-radiologist Report (No pulmonary embolus identified. Status post right shoulder arthroplasty. Cholecystectomy) Ordered Tests: Active Orders 24 hr Category Date Time Status Chargeback Specialist STAT Care 09/29/20 02:57 Active EKG-ER Only STAT Care 09/29/20 02:56 Active IV Insertion STAT Care 09/29/20 02:56 Active Pulse Oximetry (ED) STAT Care 02/03/21 02:56 Active CHEST 1 VIEW (PORTABLE) Stat Exams 09/29/20 03:21 Taken CHEST WITH CONTRAST [CT] Stat Exams 09/29/20 04:29 Taken CBC W DIFF Stat Lab 09/29/20 03:20 Completed CMP Stat Lab 09/29/20 03:20 Completed D-DIMER QUANTITATIVE Stat Lab 09/29/20 03:20 Completed INFLUENZA A+B DINO Stat Lab 09/29/20 04:00 Completed MAGNESIUM Stat Lab 09/29/20 03:20 Completed Manual Differential NC Stat Lab 09/29/20 03:20 Completed TROPONIN Q3H Lab 09/29/20 03:20 Completed TROPONIN Q3H Lab 09/29/20 06:00 Completed TROPONIN Q3H Lab 09/29/20 09:00 Ordered TROPONIN Q3H Lab 09/29/20 12:00 Ordered TROPONIN Q3H Lab 09/29/20 15:00 Ordered UA W/RFX UR CULTURE Stat Lab 09/29/20 05:01 Completed Lab/Rad Data: Laboratory Result Diagrams 09/29/20 03:20 09/29/20 03:20 Laboratory Results 09/29/20 09/29/20 09/29/20 Range/Units 06:00 05:01 04:00 WBC (4.0-10.5) K/mm3 RBC (4.1-5.6) M/mm3 Hgb (12.5-18.0) gm/dl Hct (42-50) % MCV (78-100) fl MCH (26-32) pg MCHC (32-36) g/dl RDW (11.5-14.0) % Plt Count (150-450) K/mm3 MPV (7.5-11.0) fl Segmented Neutrophils (36.-66.) % Lymphocytes (Manual) (24-44) % Monocytes (Manual) (0.0-12.0) % Platelet Estimate (NORMAL) RBC Morphology D-Dimer (215-500) ng/mL Sodium (137-145) mmol/L Potassium (3.5-5.1) mmol/L Chloride (98-107) mmol/L Carbon Dioxide (22-30) mmol/L Anion Gap (5-15) MEQ/L BUN (9-20) mg/dL Creatinine (0.66-1.25) mg/dL Estimated GFR ML/MIN Glucose (74-106) mg/dL Calcium (8.4-10.2) mg/dL Magnesium (1.6-2.3) mg/dL Total Bilirubin (0.2-1.3) mg/dL AST (17-59) U/L ALT (0-50) U/L Alkaline Phosphatase (38-126) U/L Troponin I < 0.012 (0.000-0.034) ng/mL Serum Total Protein (6.3-8.2) g/dL Albumin (3.5-5.0) g/dL Urine Color YELLOW (YELLOW) Urine Appearance CLEAR (CLEAR) Urine pH 7.0 (5-6) Ur Specific [place] 1.027 (1.005-1.025) Urine Protein NEGATIVE (Negative) Urine Ketones NEGATIVE (NEGATIVE) Urine Blood NEGATIVE (0-5) Graham/ul Urine Nitrite NEGATIVE (NEGATIVE) Urine Bilirubin NEGATIVE (NEGATIVE) Urine Urobilinogen NEGATIVE (0-1) mg/dL Ur Leukocyte Esterase NEGATIVE (NEGATIVE) Urine WBC (Auto) NONE (0-5) /HPF Urine RBC (Auto) NONE (0-2) /HPF U Epithel Cells (Auto) NONE (FEW) /HPF Urine Bacteria (Auto) NONE (NEGATIVE) /HPF Urine Culture Reflexed NO (NO) Urine Glucose NEGATIVE (NEGATIVE) mg/dL Influenza Type A Ag NEGATIVE (NEGATIVE) Influenza Type B Ag POSITIVE (NEGATIVE) 09/29/20 09/29/20 09/29/20 Range/Units 03:20 03:20 03:20 WBC (4.0-10.5) K/mm3 RBC (4.1-5.6) M/mm3 Hgb (12.5-18.0) gm/dl Hct (42-50) % MCV (78-100) fl MCH (26-32) pg MCHC (32-36) g/dl RDW (11.5-14.0) % Plt Count (150-450) K/mm3 MPV (7.5-11.0) fl Segmented Neutrophils (36.-66.) % Lymphocytes (Manual) (24-44) % Monocytes (Manual) (0.0-12.0) % Platelet Estimate (NORMAL) RBC Morphology D-Dimer 606 H* (215-500) ng/mL Sodium 135 L (137-145) mmol/L Potassium 4.1 (3.5-5.1) mmol/L Chloride 100 (98-107) mmol/L Carbon Dioxide 28 (22-30) mmol/L Anion Gap 10.7 (5-15) MEQ/L BUN 8 L (9-20) mg/dL Creatinine 1.03 (0.66-1.25) mg/dL Estimated GFR > 60.0 ML/MIN Glucose 110 H (74-106) mg/dL Calcium 9.3 (8.4-10.2) mg/dL Magnesium 2.1 (1.6-2.3) mg/dL Total Bilirubin 0.40 (0.2-1.3) mg/dL AST 22 (17-59) U/L ALT 31 (0-50) U/L Alkaline Phosphatase 89 (38-126) U/L Troponin I < 0.012 (0.000-0.034) ng/mL Serum Total Protein 7.3 (6.3-8.2) g/dL Albumin 4.1 (3.5-5.0) g/dL Urine Color (YELLOW) Urine Appearance (CLEAR) Urine pH (5-6) Ur Specific [place] (1.005-1.025) Urine Protein (Negative) Urine Ketones (NEGATIVE) Urine Blood (0-5) Graham/ul Urine Nitrite (NEGATIVE) Urine Bilirubin (NEGATIVE) Urine Urobilinogen (0-1) mg/dL Ur Leukocyte Esterase (NEGATIVE) Urine WBC (Auto) (0-5) /HPF Urine RBC (Auto) (0-2) /HPF U Epithel Cells (Auto) (FEW) /HPF Urine Bacteria (Auto) (NEGATIVE) /HPF Urine Culture Reflexed (NO) Urine Glucose (NEGATIVE) mg/dL Influenza Type A Ag (NEGATIVE) Influenza Type B Ag (NEGATIVE) 09/29/20 Range/Units 03:20 WBC 9.5 (4.0-10.5) K/mm3 RBC 5.05 (4.1-5.6) M/mm3 Hgb 14.5 (12.5-18.0) gm/dl Hct 44.5 (42-50) % MCV 88.1 (78-100) fl MCH 28.7 (26-32) pg MCHC 32.6 (32-36) g/dl RDW 14.0 (11.5-14.0) % Plt Count 383 (150-450) K/mm3 MPV 9.9 (7.5-11.0) fl Segmented Neutrophils 53 (36.-66.) % Lymphocytes (Manual) 32 (24-44) % Monocytes (Manual) 15 H (0.0-12.0) % Platelet Estimate NORMAL (NORMAL) RBC Morphology NORMAL D-Dimer (215-500) ng/mL Sodium (137-145) mmol/L Potassium (3.5-5.1) mmol/L Chloride (98-107) mmol/L Carbon Dioxide (22-30) mmol/L Anion Gap (5-15) MEQ/L BUN (9-20) mg/dL Creatinine (0.66-1.25) mg/dL Estimated GFR ML/MIN Glucose (74-106) mg/dL Calcium (8.4-10.2) mg/dL Magnesium (1.6-2.3) mg/dL Total Bilirubin (0.2-1.3) mg/dL AST (17-59) U/L ALT (0-50) U/L Alkaline Phosphatase (38-126) U/L Troponin I (0.000-0.034) ng/mL Serum Total Protein (6.3-8.2) g/dL Albumin (3.5-5.0) g/dL Urine Color (YELLOW) Urine Appearance (CLEAR) Urine pH (5-6) Ur Specific [place] (1.005-1.025) Urine Protein (Negative) Urine Ketones (NEGATIVE) Urine Blood (0-5) Graham/ul Urine Nitrite (NEGATIVE) Urine Bilirubin (NEGATIVE) Urine Urobilinogen (0-1) mg/dL Ur Leukocyte Esterase (NEGATIVE) Urine WBC (Auto) (0-5) /HPF Urine RBC (Auto) (0-2) /HPF U Epithel Cells (Auto) (FEW) /HPF Urine Bacteria (Auto) (NEGATIVE) /HPF Urine Culture Reflexed (NO) Urine Glucose (NEGATIVE) mg/dL Influenza Type A Ag (NEGATIVE) Influenza Type B Ag (NEGATIVE) - Progress Progress: improved Progress Note: 09/29/20 05:44 Patient reassessed. He is resting comfortably. Vitals within normal limits. No chest pain or shortness of breath. No nausea vomiting or diaphoresis. Work- up reveals influenza B positive. CTA negative for PE. Troponin negative x2. Patient states he is ready for discharge. Patient agrees to follow-up with his primary care doctor within 48 hours for reevaluation. He voices no other complaints or concerns at this time. Will discharge home. A prescription for Tamiflu forwarded to patient's pharmacy. Counseled pt/family regarding: lab results, diagnosis, need for follow-up, rad results - Departure Departure Disposition: Home Clinical Impression: Influenza B, URI (upper respiratory infection), Cough Condition: Stable Critical Care Time: No Referrals: LALY HUSSEIN [Primary Care Provider] - Instructions: Flu Additional Instructions: Discharge/Care Plan DILEEP GEORGES was seen on 09/29/20 in the Emergency Room. The patient was counseled regarding Diagnosis,Lab results, Imaging studies, need for follow up and when to return to the Emergency Room. Prescriptions given: Discharge Note I have spoken with the patient and/or caregivers. I have explained the patient's condition, diagnosis and treatment plan based on the information available to me at this time. I have answered the patient's and/or caregiver's questions and addressed any concerns. The patient and/or caregivers have as good understanding of the patient's diagnosis, condition and treatment plan as can be expected at this point. The vital signs have been stable. The patient's condition is stable and appropriate for discharge from the emergency department. The patient will pursue further outpatient evaluation with the primary care physician or other designated or consulting physician as outlined in the discharge instructions. The patient and/or caregivers are agreeable to this plan of care and follow-up instructions have been explained in detail. The patient and/or caregivers have received these instruction. The patient/and or caregivers are aware that any significant change in condition or worsening of symptoms should prompt an immediate return to this or the closest emergency department or call 911. Prescriptions: Oseltamivir 75 mg [Tamiflu 75MG Capsule] 75 mg PO BID 5 Days #10 cap
[2020-09-29 03:30] LABS: Hematocrit 44.5 % (42-50); Hemoglobin 14.5 gm/dl (12.5-18.0); Mean Cell Volume 88.1 fl (78-100); Mean Corpuscular Hemoglobin 28.7 pg (26-32); Mean Corpuscular Hgb Concent. 32.6 g/dl (32-36); Mean Platelet Volume 9.9 fl (7.5-11.0); Platelet Count 383 K/mm3 (150-450); Red Blood Count 5.05 M/mm3 (4.1-5.6); White Blood Count 9.5 K/mm3 (4.0-10.5)
[2020-09-29 03:41] LABS: ALBUMIN 4.1 g/dL (3.5-5.0); ALKALINE PHOSPHATASE 89 U/L (38-126); ANION GAP 10.7 MEQ/L (5-15); BLOOD UREA NITROGEN 8 mg/dL (9-20); CHLORIDE 100 mmol/L (98-107); Calcium 9.3 mg/dL (8.4-10.2); Carbon Dioxide 28 mmol/L (22-30); Creatinine 1 1.03 mg/dL (0.66-1.25); EST GLOMERULAR FILTRATION RATE > 60.0 ML/MIN; Glucose 110 mg/dL (74-106); MAGNESIUM 2.1 mg/dL (1.6-2.3); Potassium 4.1 mmol/L (3.5-5.1); SGOT/AST 22 U/L (17-59); SGPT/ALT 31 U/L (0-50); SODIUM 135 mmol/L (137-145); Total Protein 7.3 g/dL (6.3-8.2)
[2020-09-29 04:22] LABS: INFLUENZA A NEGATIVE (NEGATIVE)
[2020-09-29 04:23] LABS: INFLUENZA B POSITIVE (NEGATIVE)
[2020-09-29 05:08] LABS: Lymphocytes 32 % (24-44); Monocyte 15 % (0.0-12.0); Neutrophils 53 % (36.-66.); Total Cells Counted 100
[2020-09-29 05:09] LABS: Platelet Estimate NORMAL (NORMAL)
[2020-09-29 05:10] LABS: Appearance CLEAR (CLEAR); Bilirubin NEGATIVE (NEGATIVE); Blood NEGATIVE Ery/ul (0-5); Glucose NEGATIVE (NEGATIVE); Ketones NEGATIVE (NEGATIVE); Leukocyte Esterase NEGATIVE (NEGATIVE); Nitrite NEGATIVE (NEGATIVE); Protein,Urine Dip NEGATIVE (Negative); Specific Gravity 1.027 (1.005-1.025); Urobilinogen NEGATIVE mg/dL (0-1)
[2020-09-29 06:43] VITALS: BP 165/100; PULSE 81; O2SAT 99
--- NOTE | 2020-09-29 08:59 | XRAY ---
Indication: Cough, short of breath, and elevated d-dimer. Suspect Covid 19. Multiple contiguous axial images obtained through the chest using 80 cc Isovue 370 contrast and PE protocol. Comparison: None There is satisfactory opacification of the pulmonary arteries. Mild respiration artifact throughout limits evaluation of the more distal lobar and segmental branches. No obvious central pulmonary embolus. Heart is not enlarged. Aorta is normal in course and caliber. No pathologic mediastinal/hilar lymphadenopathy. Lungs demonstrates minimal bilateral dependent atelectasis. No suspicious pulmonary mass, infiltrate, consolidation, or effusion. Bony thorax intact with minimal degenerative changes throughout the spine and right shoulder arthroplasty. Limited upper abdomen demonstrates fatty liver and cholecystectomy clips. Impression: 1. Pulmonary embolus evaluation limited due to respiration artifact. No obvious pulmonary embolus. 2. No acute cardiopulmonary abnormalities. 3. Incidental fatty liver and chronic bony findings. Comment: Preliminary interpretation was made by [facility]. No critical discrepancy.
--- NOTE | 2020-09-29 09:02 | XRAY ---
Indication: Cough and short of breath. Suspect Covid 19. Comparison: None Portable chest demonstrates normal heart and lungs. Bony thorax intact with minimal degenerative changes and right shoulder arthroplasty.
== END 2020-09-29 06:43 | disposition home or self-care (01) ==
LOC: ED 02:06
DX: J10.1 Influenza due to other identified influenza virus with other respiratory manifestations (principal); R05 Cough; R06.02 Shortness of breath; E78.00 Pure hypercholesterolemia, unspecified; I10 Essential (primary) hypertension; Z79.899 Other long term (current) drug therapy
CPT/HCPCS: 36000; 36415; 71045; 71260; 80053; 81001; 83735; 84484; 85025; 85379; 87400; 93005; 93041; 94760; 99284